=== PATIENT | female | born 1950 | race Caucasian/White ===

== ENCOUNTER 2020-03-28 06:08 | Observation (INO) | payer MEDICARE, OTHER ==
[~2020-03-28] VITALS: Ht 160 cm; Wt 84.6 kg
[~2020-03-28 06:08] MED LIST: AMLODIPINE BESYL5 MG PO; BACLOFEN20 MG PO; CARVEDILOL12.5 MG PO; CLONIDINE1 EAC2 TD; ESTRADIOL1 MG PO; FLUOXETINE HCL20 MG PO; HYDRALAZINE HCL10 MG PO; HYDRALAZINE HCL25 MG PO; LEVOTHYROXINE75 MCG PO; LISINOPRIL10 MG PO; SIMVASTATIN10 MG PO; TRAZODONE HCL50 MG PO
--- NOTE | 2020-03-28 09:00 | NUR ---
PATIENT ARRIVES TO CCU ROOM 130 FROM ER FOR HYPERTENSIVE EMERGENCY. PT ABLE TO STAND TO PIVOT OVER TO BED, PIVOTING ON HER LEFT LEG WHICH IS HER STRONG SIDE. PT SUFFERS FROM MS AND HER RIGHT SIDE IS EFFECTED BY THIS WITH WEAKNESS. PT REPORTS FALLING EARLY THIS AM, AROUND 0300 AT HOME. PT'S BLOOD PRESSURES VERY ELEVATED UPON ADMIT. PT IS ALERT, ORIENTED TO SELF, PLACE, BUT STATES INCORRECT YEAR INITIALLY AND STATES THE PRESIDENT IS "OBAMA." PT ALSO UNSURE OF THE CURRENT MONTH. ASSESSMENT COMPLETE. LUNGS ARE CLEAR TO AUSCULTATION AND ON ROOM AIR. PT'S SON IN ROOM AND ATTENTIVE. CONTINUE TO MONITOR.
--- NOTE | 2020-03-28 10:56 | NUR ---
PATIENT FINISHES HER BREAKFAST AND IS NOW RESTING, WATCHING FOOTBALL WITH HER SON AT BEDSIDE. PT DENIES FURTHER NEEDS. ORIETNED TO CALL LIGHT AND COMMODE OUT AND READY FOR PATIENT TO USE WHEN SHE NEEDS TO VOID.
--- NOTE | 2020-03-28 11:30 | NUR ---
THIS RN TOOK OVER PATIENT CARE AT THIS TIME. INTRODUCED MYSELF AND VISITED WITH PATIENT AND FAMILY. PATIENT IS SITTING UP IN BED WITH HER SON AT THE BEDSIDE. PATIENT IS ALERT, BUT FORGETFUL OF EVENTS AND TIME. PER SON PATIENT IS FORGETFUL BASELINE, BUT SEEMS A LITTLE BIT MORE SO WITH FALLING THIS AM. PATIENT DENIES ANY OTHER NEEDS AT THIS TIME. ASSESSMENT COMEPLTED. WILL CONTINUE TO CLSOELY MONITOR.
--- NOTE | 2020-03-28 13:37 | EKG ---
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
--- NOTE | 2020-03-28 13:42 | NUR ---
LUNCH FINISHED PATIENT REPOSITIONED IN BED FOR COMFORT. PATIENT VISITING WITH HER GRANDDAUGHTER. WILL CONTINUE TO CLOSELY MONITOR.
--- NOTE | 2020-03-28 14:53 | NUR ---
REPORT GIVEN TO JOSHUA RICHARDSON. SEE WILL RESUME CARE AT THIS TIME. INTRODUCED PATIENT TO RN. PATIENT DENIES ANY NEEDS AT THIS TIME. CALL LIGHT IN REACH.
--- NOTE | 2020-03-28 14:58 | NUR ---
REPORT RECIVED. PT IN BED AWAKE. DENEIS PAIN OR NEEDS. IS ALERT. CALL LIGHT IN REACH.
[2020-03-28] MEDS ORDERED: LISINOPRIL20 MG PO (16:13)
[2020-03-28] MEDS ORDERED: CARVEDILOL25 MG PO (16:14)
--- NOTE | 2020-03-28 16:24 | NUR ---
PT WITH BLOOD PRESSURE OF 182/69. PRN LABATOLOL ADMINSITERED.
--- NOTE | 2020-03-28 18:29 | NUR ---
PT SITTING IN BED WATCHING TV. ATE 100% OF DINNER. DENIES PAIN OR NEEDS. BLOOD PRESSURE IMPROVED. CALL LIGHT IN REACH. DENEIS NEEDS.
--- NOTE | 2020-03-28 20:57 | NUR ---
IN TO DO ASSESSMENT. pt RESTING IN BED WITH DAUGHTER AT BEDSIDE. DAUGHTER PROVIDED A LISTED OF MEDICATIONS THE pt TAKES AT HOME, MENTIONED THAT THE PILLS IN THE pt's MED BOX DID NOT MATCH THE PERSCRIPTION BOTTLE, THE DAUGHTER THOUGHT THAT THE PATIENT MAY NOT HAVE BEEN TAKING HER MEDICATIONS CORRECTLY. ASSESSMENT DONE. pt DENIED PAIN AT THIS TIME. MEDICATIONS GIVEN (SEE MAR). DAUGHTER REMAINS AT BEDSIDE. NO FURTHER REQUESTS AT THIS TIME. CALL LIGHT WITHIN REACH.
--- NOTE | 2020-03-28 21:15 | NUR ---
REPORT GIVEN TO DEBRA TENA. pt MOVED TO MED/SURG
--- NOTE | 2020-03-28 21:25 | NUR ---
pt TRANSFERRED FROM CCU TO ROOM 113 VIA HOSPITAL BED. ORIENTATION TO ROOM, CALL LIGHT PROVIDED. DAUGHTER IN ROOM. SANDWICH BOX PROVIDED REQUESTED. IVF INFUSING ORDERED. CALL LIGHT IN REACH. TELE [address] .
--- NOTE | 2020-03-28 22:32 | NUR ---
CALL LIGHT ANSWERED. HEAVY 2PA TO PIVOT TO [facility] FOR VOID. NO VOID IN COMMODE, INCONTINENT OF URINE. BEDDING CHANGED. ATTENDS, NOEMI PAD PLACED ON pt. BACK IN BED. NEURO FUNCTION WNL. CALL LIGHT IN REACH. DAUGHTER AT BEDSIDE. NO ADDITIONAL REQUESTS.
--- NOTE | 2020-03-29 00:52 | NUR ---
pt AWAKENS EASILY TO RN ENTERING ROOM. HR 60 ON TELE 3. BP 178/65, PRN MEDICATION ADMINISTERED FOR BP. NEURO CHECK WNL. WEAKNESS RIGHT SIDE UNCHANGED. ORIENTED TO ALL EXCEPT EXACT DATE, ORIENTED TO MONTH, YEAR. DAUGHTER IN ROOM. CALL LIGHT IN REACH. pt HAS NO ADDITIONAL REQUESTS AT THIS TIME.
--- NOTE | 2020-03-29 04:17 | NUR ---
CHECKED ON PT @ 0345 FOR NEURO CHECK. PT C/O "FEELING FUNNY" IN HER STOMACH BUT BELIEVES IT IS NERVES FROM "BEING IN HERE". BP CHECKED AND BP WAS 204/90, MAP 117, HR 72. PRN 10MG LOBETALOL ADMINISTERED IV. WILL RECHECK BP IN 30MIN. DAUGHTER IN ROOM IN CHAIR AT BEDSIDE. CALL LIGHT PLACED WITHIN REACH
--- NOTE | 2020-03-29 05:49 | NUR ---
RECHECK BP. 157/69, HR 62. ASSESSMENT COMPLETE. I/OS FINISHED. PT REPORTS NO PAIN. NEURO CHECK WNL. CALL LIGHT WITHIN REACH. NO FURTHER NEEDS AT THIS TIME.
--- NOTE | 2020-03-29 07:05 | NUR ---
BEDSIDE HANDOFF REPORT RECEIVED FROM ORGANIC CHEMISTRY TEACHER RN. PT SLEEPING, DAUGHTER SLEEPING AT BEDSIDE.
--- NOTE | 2020-03-29 08:00 | NUR ---
PATIENT RESTING IN BED. WHITE BOARD UPDATED. PATIENT'S HANDS AND FACE WASHED. PATIENT'S BREAKFAST ORDERED. CALL LIGHT WITHIN REACH. NO OTHER NEEDS AT THIS TIME
--- NOTE | 2020-03-29 09:12 | NUR ---
PT RESTING IN BED, EATIN BREAKFAST. PT HYPERTENSIVE, BP 194/83, GIVEN SCHEDULED LISINOPRIL, HYDRALAZINE AND CARVEDILOL, DISCUSSED WITH DR. DRISCOLL IF PRN IV BLOOD PRESSURE MEDICATIONS SHOULD BE GIVEN, HOLD AT THIS TIME TO EVALUATE EFFECTIVENESS OF ORAL MEDS. PT ASSISTED TO BSC, VOIDED. LUNG SOUNDS CLEAR, DENIES SOB. GOOD APPETITE. IV SALINE LOCKED. PT DENIES OTHER NEEDS AT THIS TIME.
--- NOTE | 2020-03-29 09:47 | NUR ---
PATIENT SITTING UP IN BED. VITAL SIGNS AND I&O DONE. CALL LIGHT WITHIN REACH. NO OTHER NEEDS AT THIS TIME
--- NOTE | 2020-03-29 11:26 | NUR ---
IV STARTED IN RFA. PRN BLOOD PRESSURE MEDICATION GIVEN FOR ELEVATED BP. PT ALSO COMPLAINING OF HEADACHE. PRN TYLENOL ADMINSTERED.
--- NOTE | 2020-03-29 12:23 | NUR ---
PO CARVEDILOL GIVEN PER ORDER, DISCUSSED WITH PT THAT HOME DOES IS BEING INCREASED FOR BETTER BLOOD PRESSURE CONTROL. PT GIVEN FRESH ICE FOR DRINKS, PT DENIES OTHER NEEDS AT THIS TIME.
--- NOTE | 2020-03-29 13:12 | NUR ---
NEURO ASSESSMENTS D/C PER AT AM STAFF MEETING.
--- NOTE | 2020-03-29 13:22 | NUR ---
PATIENT RESTING IN BED. VITAL SIGNS AND I&O DONE. PATIENT USES THE BASE COMMODE. TWO PERSON ASSISTING. PATIENT BACKS TO BED. CALL LIGHT WITHIN REACH. NO OTHER NEEDS AT THIS TIME
--- NOTE | 2020-03-29 14:30 | NUR ---
PT RESTING IN BED. AFTERNOON ASSESSMENT COMPLETED, NO ACUTE CHANGES. PT ASSISTED TO ORDER LUNCH SHE HAS NOT EATEN YET. PT DENIES OTHER NEEDS AT THIS TIME.
--- NOTE | 2020-03-29 17:26 | NUR ---
Spoke with Shari. She states she has had MS since she was 14 yo and has learned how to live with it. States she lives alone in a 1 story home with a ramp. She does all her own house hold chores and ADLS. States she mops her floors and uses a small vacume to clean up spills. She has friend who vacumes and occasionally deep cleans. She denies needs to go home. Daughter arrives and states she plans on her and her mother moving in together. Shari states this is her not her plan and she does not plan on living with her daughter. She states she plans on going home to her house on [address].
[2020-03-29] MEDS ORDERED: LO-DOSE ASPIRIN81 MG PO (17:28)
[2020-03-29] MEDS ORDERED: COD LIVER OIL1 EAC1 PO (17:29)
--- NOTE | 2020-03-29 17:29 | NUR ---
Medications reconciled using RX records and interview with patient & her daughter
--- NOTE | 2020-03-29 17:34 | NUR ---
PATIENT SITTING UP IN BED. DAUGHTER AND PHARMACIST IN ROOM. VITAL SIGNS AND I&O DONE. PATIENT ASKS FOR GAS MEDICINE. RN NOTIFIED. CALL LIGHT WITHIN REACH. NO OTHER NEEDS AT THIS TIME
--- NOTE | 2020-03-29 17:44 | NUR ---
PT WITH IMPROVED BLOOD PRESSURE, RECEIVED IV HYDRALAZINE AND PO CARVEDILOL DOSE INCREASED. PT ON ROOM AIR, LUNG SOUNDS CLEAR. PT WITH ACTIVE BOWEL TONES, TOLERATING DIET. 1PA TO BSC, VOIDING QS. NEW IV STARTED TO RIGHT ARM.
--- NOTE | 2020-03-29 19:21 | PATH ---
[facility] [address], [place] [address] Signed ORDERING PHYSICIAN: Femi Craig MD PATIENT NAME: TERENCE BAJWA GENDER: F : 1950 Prior History: No cases found. SPECIMEN(S): No Source Given MOLECULAR PATHOLOGY RESULTS: SARS-CoV-2 Not Detected ADDITIONAL NOTES.: The Lynn Fusion SARS-CoV-2 Assay is a multiplex real-time PCR (RT-PCR) in vitro diagnostic test intended for the qualitative detection of RNA from SARS-CoV-2 from individuals who meet COVID-19 clinical and/or epidemiological criteria. In general, SARS-CoV-2 RNA can be detected during the acute phase of infection. Positive results indicate the presence of SARS-CoV-2 RNA. Clinical correlation with patient history and other diagnostic information is necessary to determine patient infection status. Positive results do not rule out bacterial infection or co-infection with other viruses. Negative results do not preclude SARS-CoV-2 infection and should not be used as the sole basis for patient management decisions. Negative results must be combined with other clinical observations, patient history, and epidemiological information. The Lynn Fusion SARS-CoV-2 Assay is not yet approved or cleared by the [place] FDA. When there are no FDA-approved or cleared tests available, and other criteria are met, FDA can make tests available under an emergency access mechanism called an Emergency Use Authorization (EUA). The EUA for this test is supported by the Safety Scientist of Health and Human Service's (HHS's) declaration that circumstances exist to justify the emergency use of in vitro diagnostics for the detection and/or diagnosis of the virus that causes COVID-19. This EUA will remain in effect for the duration of the COVID-19 declaration justifying emergency of IVDs, unless it is terminated or revoked by FDA, after which the test may no longer be used. The Lynn Fusion SARS-CoV-2 Assay is for use only under EUA PATIENT NAME: TERENCE BAJWA PATHOLOGY DATE OF : 50 REPORT #: [id number] PHYSICIAN: GINETTE FOSTER PCP: ARMEN PEARSON MD REPORT IS CONFIDENTIAL AND NOT TO BE RELEASED WITHOUT AUTHORIZATION [facility] [address], [place] [address] Signed in laboratories certified under the Clinical Laboratory Improvement Amendments of 1988 (CLIA) to perform high complexity tests. [facility] is certified under CLIA to perform high complexity clinical laboratory testing. PERFORMING LABORATORY.: Molecular testing was performed by [facility] [address] [place], [place] [address] [address] (Community Artist: Reji Butler D.O.; CLIA#: [id number]) Diagnostician: System Interface Pathologist Electronically Signed 03/29/2020 Copies: ~ PATIENT NAME: TERENCE BAJWA PATHOLOGY DATE OF : 50 REPORT #: [id number] PHYSICIAN: GINETTE FOSTER PCP: ARMEN PEARSON MD REPORT IS CONFIDENTIAL AND NOT TO BE RELEASED WITHOUT AUTHORIZATION
--- NOTE | 2020-03-29 19:30 | NUR ---
REPORT RECEIVED FROM DEBRA MORA. pt AWAKE IN BED, DAUGHTER AT BEDSIDE. IV SL. TRAY TABLE CLEARED. CALL LIGHT IN REACH. NO REQUESTS AT THIS TIME.
--- NOTE | 2020-03-29 20:48 | NUR ---
ice water refilled.
--- NOTE | 2020-03-29 22:25 | NUR ---
pt RESTING IN BED AWAKE. VSS. SCHEDULED MEDICATIONS ADMINISTERED. TELE [address], HR REGULAR RHYTHM. CALL LIGHT AND PERSONAL SUPPLIES IN REACH. REPOSITIONED IN BED WITH TWO NURSING STAFF ASSIST.
--- NOTE | 2020-03-30 00:45 | NUR ---
pt RESTING IN BED WITH EYES CLOSED. BREATHING UNLABORED. CALL LIGHT IN LAP.
--- NOTE | 2020-03-30 03:30 | NUR ---
pt APPEARS TO BE SLEEPING, RESTING IN BED WITH EYES CLOSED, BREATHING UNLABORED.
--- NOTE | 2020-03-30 05:55 | NUR ---
pt AWAKENS TO RN ENTERING ROOM. VSS. 2PA TO BSC FOR VOID AND BACK TO BED. ASSISTED TO REPOSITION. ASSESSMENT COMPLETE. HR REGULAR RHYTHM ON TELE 3. CALL LIGHT IN REACH. COFFEE AND ICE WATER PROVIDED.
--- NOTE | 2020-03-30 07:28 | NUR ---
THIS RN RECEIVED REPORT FROM DARINEL RICHARDSON. PT APPEARS TO BE RESTING AT THIS TIME WITH RESPIRATIONS NOTED AND CALL LIGHT WITHIN REACH. [facility] SAP DEVELOPER CINDY TO ASSIST THIS RN TODAY ON THIS PT.
--- NOTE | 2020-03-30 08:20 | NUR ---
THIS RN IN PTS ROOM WITH [facility] SITE HEAD CINDY. WHEN BOTH ENTERED PT STATED THAT SHE THOUGHT SHE WAS HEARING VOICES, THIS RN ASKED IF THE NOISE WAS COMING FROM THE CALL LIGHT REMOTE, PT STATED THAT WAS WHAT THE NOISE WAS COMING FROM. PT STATES NO PAIN, SOME DISCOMFORT FROM THE SIGHT WHERE THEY RUI LABS THIS AM. NO OTHER CONCERNS AT THIS TIME.
--- NOTE | 2020-03-30 09:15 | NUR ---
PATIENT RESTING IN BED. STUDENT RN IN ROOM. PATIENT GOES TO THE BATHROOM TO TAKE A SHOWER. TWO PERSON ASSISTING. LINENS CHANGED. PATIENT BACKS TO BED. WARM BLANKET PROVIDED. CALL LIGHT WITHIN REACH. NO OTHER NEEDS AT THIS TIME
--- NOTE | 2020-03-30 10:20 | NUR ---
Notified by Staff, Daughter in Law Dee had called requesting placement for Shari. She feels if the would encourage Shari she would be willing to go to placement. Spoke with pt and discussed if she would be interested in placement. She becomes very upset and states, "I know it was my daughter in law who called and she has nothing to say about it". Pt feels she and daughter in law do not get along. Pt feels she does fine on her own. She is able to care for her home, uses a med box, calls or family appropriately when needed. Discussed I just needed to ask. Also reminded her family are concerned about her. She asks I call her son and let him know she does not need to leave her home. Called son Meliton and updated to conversation. He is aware as Shari has called him and let him know she is not happy with them. He states he can see his mom deteriorating and he is concerned. He states her memory is worsening and she calls him frequently, he is unable to leave his job and she expects him to do so. Discussed he needs to go throug her PCP if he has concerns. He should call Dr. Cleveland and let him know his concerns prior to his next visit. Son is going to '[place] office today and will discuss with him.
[2020-03-30] MEDS ORDERED: MULTI VITAMIN1 EACH PO (10:58)
--- NOTE | 2020-03-30 11:46 | NUR ---
THIS RN DISCUSSED WITH ABOUT PTS DISCHARGE BLOOD PRESSURE. THIS RN STATED THAT PT WAS HAVING SOME PERSONAL STRESS THAT COULD BE CONTRIBUTING TO HER INCREASED BP. PT STATED THAT SHE THOUGHT HER INCREASED BP WAS DUE TO INCREASED STRESS FROM A DISAGREEMENT THAT SHE HAD WITH HER SON ABOUT HER CONTINUED CARE. MD JIMENEZAY SENDING PT HOME WITH THIS BP. PT STATES THAT SHE HAS NO SYMPTOMS OF HAVING AN INCREASED BP.
--- NOTE | 2020-03-30 13:35 | NUR ---
CONNECTED WITH PT SHE WAS LEAVING FOLLOWING DC. GAVE ENCOURAGEMENT AND BLESSING
== END 2020-03-30 12:10 | disposition home or self-care (01) ==
LOC: ED 06:08 → MS 06:10 → CCU 06:10 → MS 21:59
PROVIDERS: ADMIT Internal Medicine; ATTEND Internal Medicine
DX: I16.9 Hypertensive crisis, unspecified (principal); I10 Essential (primary) hypertension; G35 Multiple sclerosis; Z20.828 Contact with and (suspected) exposure to other viral communicable diseases; Z88.0 Allergy status to penicillin; Z79.899 Other long term (current) drug therapy; Z79.82 Long term (current) use of aspirin; W18.30XA Fall on same level, unspecified, initial encounter; W06.XXXA Fall from bed, initial encounter
CPT/HCPCS: 36415; 51701; 70450; 71045; 80048; 80053; 81001; 83735; 84484; 85025; 93005; 93010; 96376; 97162; 99285-25; C9803; G0378; G0480; J0360; J7030; U0003

== ENCOUNTER 2020-10-21 13:06 | Emergency (ER) | payer MEDICARE ==
[~2020-10-21] VITALS: Ht 160 cm; Wt 84.6 kg
[~2020-10-21 13:06] MED LIST changes: +CARVEDILOL25 MG PO; +COD LIVER OIL1 EAC1 PO; +LISINOPRIL20 MG PO; +LO-DOSE ASPIRIN81 MG PO; +MULTI VITAMIN1 EACH PO
[2020-10-22] MEDS ORDERED: TRIAMTERENE-HC1 EAC1 PO (10:36)
--- NOTE | 2020-10-22 17:13 | EKG ---
[facility] [place] [facility] [address] [facility] [place] [address] Signed Normal sinus rhythm Possible Left atrial enlargement ST \T\ T wave abnormality, consider lateral ischemia Abnormal ECG When compared with ECG of 28-MAR-2020 06:34, Vent. rate has increased BY 29 BPM Criteria for Inferior infarct are no longer present T wave inversion no longer evident in Anterior leads Confirmed by DALIA MARSH MD ([id number]) on 10/22/2020 5:13:39 PM Electronically Signed By: DALIA MARSH MD 10/22/20 1713 PATIENT NAME: TERENCE BAJWA Electrocardiogram DATE OF : 50 PHYSICIAN: DALIA MARSH MD REPORT #: [id number] REPORT IS CONFIDENTIAL AND NOT TO BE RELEASED WITHOUT AUTHORIZATION
== END 2020-10-21 17:15 | disposition home or self-care (01) ==
LOC: ED 13:06
DX: R53.1 Weakness (principal); I10 Essential (primary) hypertension; Z88.0 Allergy status to penicillin; Z79.899 Other long term (current) drug therapy; Z79.82 Long term (current) use of aspirin
CPT/HCPCS: 70450; 71045; 80053; 81001; 82550; 83605; 84484; 85025; 85651; 87502; 93005; 93010; 99285-25; C9803; J7030; U0003

== ENCOUNTER 2020-10-21 19:25 | Inpatient (IN) | payer MEDICARE ==
[~2020-10-21] VITALS: Ht 160 cm; Wt 87.5 kg
--- OUTSIDE RECORDS SUMMARY | 2020-10-21 19:30 | XMS ---
PreManage Notification: TERENCE BAJWA Security [employer] Events No recent Security Events currently on file CRITERIA MET - [facility] - 2 Visits in 30 Days CARE PROVIDERS There are no care providers on record at this time. [facility] has no Care Guidelines for this patient. [facility] VISIT COUNT (12 MO.) 3 [facility] Cel[facility] H. TOTAL 3 NOTE: Visits indicate total known visits. ED/C VISIT TRACKING (12 MO.) 10/21/2020 19:[address] [facility] [place] TYPE: Emergency COMPLAINT: - WEAKNESS 10/21/2020 13:07 [facility] [place] TYPE: Emergency COMPLAINT: - FALL, HIGH B/P, MEMORY LOSS, SLURRED SPEECH 03/28/2020 06:09 [facility] [place] TYPE: Emergency COMPLAINT: - CONFUSION INPATIENT VISIT TRACKING (12 MO.) 03/28/2020 06:10 [facility] [place] TYPE: Observation COMPLAINT: - HYPERTENSIVE CRISIS DIAGNOSES: - Fall from bed, initial encounter - group home (current) use of aspirin - Other m[facility]p (current) drug therapy - Essential (primary) hypertension - Allergy status to penicillin - Hypertensive crisis, unspecified - Fall on same level, unspecified, initial encounter - Contact with and (suspected) exposure to other viral communicable diseases - Multiple sclerosis [email or web address]
--- NOTE | 2020-10-21 21:44 | NUR ---
PT ARRIVED FROM ED VIA STRETCHER AT 2115. PRIMARY RN YONAS IN ROOM TO ASSIST PT OVER TO BED. VS TAKEN AND ENTERED. PT ORIENTED TO CALL LIGHT AND HAS SON IN ROOM. COMPLETED ADMISSION HX WITH PT AND SON. DR MARSH CALLED OVER ORDER FOR 4 TABS OF 81MG ASPIRIN ONCE AND ORDER ENTERED. LR BOLUS IS INFUSING AT THIS TIME AND PT DENIES NEEDS. CALL LIGHT IS CLOSE.
--- NOTE | 2020-10-21 22:28 | NUR ---
PATIENT ASSESMENT COMPLETED. PATIENTS ADMISSION COMPLETED BY RELAY ADJUSTER. PATIENTS MEDICATIONS GIVEN PER ORDER. PATIENT HAS IV INFUSING PER ORDER AND BOLUS INFUSING PER ORDER. PATIENT DENIES ANY PAIN. PATIENT IS ABLE TO ANSWER ALL ORIENTATION QUESTIONS BUT HOWEVER IS SLOW TO ANSWER THE QUESTIONS. PATIENT IS DROWSY AT TIMES. PATIENT PROVIDED WITH A SANDWICH BOX AND ICE WATER TO DRINK. PATIENTS DAUGHTER IS PRESENT IN THE ROOM. ALL QUESTIONS ANSWERED. PATIENT DENIES ANY FURTHER NEEDS AT THIS TIME. CALL LIGHT IN REACH.
--- NOTE | 2020-10-21 23:28 | NUR ---
PATIENT ASSISTED TO THE BSC A 2PA PIVOT. PATIENT WAS ABLE TO VOID. PATIENT IS BACK IN BED RESTING. PATIENT DENIES ANY FURTHER NEEDS. PATIENTS DAUGHTER REMAINS AT THE BEDSIDE. CALL LEILA VERGARA.
--- NOTE | 2020-10-22 01:00 | NUR ---
PATIENT FINISHED 100% OF HER SNACK. PATIENT REPOSITONED IN BED AND PROVIDED WITH FRESH ICE WATER. NO FURTHER NEEDS NOTED. CALL LIGHT IN REACH.
--- NOTE | 2020-10-22 01:35 | NUR ---
PATIENTS DAUGHTER NOTIFIED STAFF THAT HER MOTHER WAS UNCOMFORTABLE. PATIENT ASSISTED TO REPOSITION. PATIENT STATED "I DONT FEEL RIGHT". PATIENT DENIES ANY PAIN OR NAUSEA. PATIENTS VITALS TAKEN AND ARE WNL. PATIENTS INTAKE AND OUTPUT RECORDED. PLACED EGG CRATE ON PATIENTS BED TO MAKE BED SOFTER. PATIENT DENIES ANY FURTHER NEEDS. CALL LIGHT IN REACH.
--- NOTE | 2020-10-22 01:53 | NUR ---
PATIENT REPOSITIONED IN BED. PATIENTS VITALS TAKEN AND RECORDED. INTAKE AND OUPUT RECORDED. PATIENTS IVINFUSING PER ORDER. NO FURTHER NEEDS NOTED. DAUGHTER REMAINS IN ROOM. CALL LIGHT IN REACH.
--- NOTE | 2020-10-22 03:17 | NUR ---
PATIENT CONTINUES TO BE UNCOMFORTABLE. PATIENT PROVIDED WITH FAN. PATIENT ASSISTED A 2PA PIVOT TO THE RECLINER. PATIENT REPOSTIONED IN THE FAN. PATIENT PROVIDED WITH HOT TEA. PATIENT REPORTS GENERALIZED DISCOMFORT. PATIENT GIVEN PRN TYLENOL PER ORDER. PATIENT IS RESTING IN RECLINER. PATIENT APPEARS OVERLY TIRED SHE CONTINUES TO FALL ASLEEP THEN WAKE UP AFTER JUST A FEW MINUTES AND STATES "I JUST CAN'T" THIS IS REPEATED ALL THROUGHOUT PATIENT CARE. PATIENT PROVIDED WITH TEA. PATIENT PROVIDED WITH COOL WASH RAG. PATIENT STATED THAT SHE WAS SOB AT ONE POINT OXYGEN SATURATION IS WNL. PATIENT OFFERED OXYGEN. ATTEMPTED TO PALCE PATIENT ON 1L. PATIENT WAS NOT ABLE TO WEAR. PATIENTS OXYGEN SATS REMAIN WNL. PATIENT REPOSITIONED AGAIN IN RECLINER AND FEET PLACED UP. PATIENT APPEARS TO BE MORE COMFORTABLE AT THIS TIME. DAUGHTER REMAINS IN THE ROOM. CALL LIGHT IN REACH.
--- NOTE | 2020-10-22 03:56 | NUR ---
PATIENT IS RESTING IN RECLINER WITH EYES CLSOED, RR 17. CALL LIGHT IN REACH. DAUGHTER ASLEEP IN ROOM.
--- NOTE | 2020-10-22 04:23 | NUR ---
PATIENT CONTINUES TO REST IN RECLINER WITH EYES CLOSED, RR 17. CALL LIGHT IN REACH.
--- NOTE | 2020-10-22 06:29 | NUR ---
LAB IN ROOM. PATIENTS VITALS TAKEN AND RECORDED. INTAKE AND OUTPUT RECORDED. PATIENT IS RESTING IN RECLINER. MORNING MEDICATION GIVEN PER ORDER. PATIENT DENIES ANY NEEDS. CALL LIGHT IN REACH. DAUGHTER REMAINS IN THE ROOM.
--- NOTE | 2020-10-22 07:45 | NUR ---
REPORT RECEIVED FROM NIGHT RN AND PT. CARE RESUMED. PT. IS UP TO THE COMMODE WITH 2PA AND ABLE TO PIVOT. ORIENTED TO PERSON AND PLACE ONLY. SHE IS SLOW TO RESPOND AND APPEARS TO FALL IN AND OUT OF SLEEP WHILE SITTING UP TALKING. AFTER AMBULATING TO COMMODE PT. REPORTS DIZZINESS. VITALS TAKEN AND STABLE. DIZZINESS RESOLVED AFTER A FEW MINUTES. LUNGS CLEAR. BOWEL TONES ACTIVE. PT. DENIES PAIN. NEURO ASSESSMENT SHOWS SLIGHT RIGHT SIDED WEAKNESS UPPER AND LOWER EXTREMITY THAT WAS REPORTED NORMAL. DISCUSSED POC AND SAFETY. PT. LEFT RESTING IN BED WITH CALL LIGHT IN REACH.
--- NOTE | 2020-10-22 09:15 | NUR ---
SPOKE WITH PT AND SHE IS DROWSY. STATES SHE CONT. TO LIVE AT HOME ALONE. DAUGHTER CHECKS ON HER. 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 PT STATES SHE IS VERY WEAK, AND FEELS SHE MAY NEED TO BE PLACED ON DISCHARGE IF SHE NEEDS FURTHER HELP.
--- NOTE | 2020-10-22 09:45 | NUR ---
PT. REPORTS NAUSEA. SHE WAS ASSISTED WITH SITTING UPRIGHT. ADMIN. ZOFRAN. WILL CONTINUE TO MONITOR. PT. HAS SCAB PRESENT ON ELBOWS BUT COULD NOT RECALL WHERE SHE GOT THEM. SHE COMPLAINS IT IS BOTHERING HER. LEFT SIDE DRESSED WITH FOAM DRESSINGS.
[2020-10-22] MEDS ORDERED: TRIAMTERENE-HC1 EAC1 PO (10:36)
--- NOTE | 2020-10-22 10:44 | NUR ---
MED REC COMPLETE
--- NOTE | 2020-10-22 11:12 | NUR ---
PT. HEARD YELLING "HELP ME!" REPEATEDLY. THIS NURSE CHECKED ON PT. AND SHE COULD NOT STATE WHAT SHE NEEDED. PT. STATED SHE WAS SCARED AND DID NOT FEEL LIKE HERSELF. PT. LESS ORIENTED AND COULD NOT STATE HER , YEAR, OR EVENT. NEURO ASSESSMENT SHOWS RT. SIDED WEAKNESS THAT IS CHRONIC. PT. REPEATEDLY FALLS ASLEEP MID-SENTENCE. SHE IS INCREASINGLY RESTLESS. NOTIFIED. NO NEW ORDERS. WILL CONTINUE TO MONITOR.
--- NOTE | 2020-10-22 13:52 | NUR ---
PT. BACK FROM MRI. RESTARTED IVF. PT. DENIES PAIN. ORIENTED TO TO SELF AND PLACE. SHE IS MORE ALERT AND NOT FALLING ASLEEP WHILE TALKING, SHE DID EARLIER. LUNGS CLEAR THROUGHOUT. NEURO ASSESSMENT SHOWS ONLY RT. SIDED WEAKNESS IN ARM AND LEG. PT. DENIES FURTHER NEEDS AND LEFT RESTING WITH SON AT BEDSIDE.
--- NOTE | 2020-10-22 16:23 | NUR ---
PATIENT UP TO THE BEDSIDE COMMODE WITH FWW AND 2PA. PT. DID WELL WITH THE WALKER AND STATED SHE HAS USED ONE IN THE PAST. IV SITE WNL. PT. IS ORIENTED TO SELF, PLACE, EVENT. COMMUNICATING WELL. LUNGS CLEAR. PT. ASSISTED WITH REPOSITIONING. LEFT RESTING IN BED WITH CALL LIGHT IN REACH AND CURTAIN OPEN.
--- NOTE | 2020-10-22 19:00 | NUR ---
SHIFT REPORT RECEIVED FROM DAYSHIFT DEBRA ALLEN AT BEDSIDE. IV FLUIDS ON STANDBY, RESUMED AT THIS TIME PER MD ORDERS, SITE WNL. INFORMED BY JOCELIN NUÑEZ, pt CALLING OUT FOR HELP AND THAT NOBODY HAS BEEN IN HER ROOM. THIS RN AND DEBRA ALLEN IN ROOM, pt ON PHONE WITH DAUGHTER. THERAPEUTIC COMMUNICATION PROVIDED, pt REASSURED. CALL LIGHT IN REACH, BED ALARM ON FOR SAFETY. WILL MONITOR. BOARD UPDATED.
--- NOTE | 2020-10-22 20:02 | NUR ---
IN ROOM TO REASSURE pt AFTER NOTIFIED BY DEBRA LEWIS THAT pt CLAIMS SHE NEEDS HELP AND NOBODY HAS SEEN HER. IN ROOM TO ASSESS, pt IN BED AND STATES, "IM SICK". WHEN ASKED IF pt HAD PAIN pt DENIED AND DID NOT GVIVE FURTHER ANSWER REGARDING WHY SHE FELT SICK. pt A/O TO SELF AND PLACE. THERAPEUTIC COMMUNICATION PROVIDED. NO FURTHER NEEDS, CALL LIGHT REMAINS IN REACH. BED ALRM ON.
--- NOTE | 2020-10-22 20:57 | NUR ---
ASSESSMENT COMPLETE, SCHEDULED MED GIVEN. FAMILY IN ROOM. MEDS GIVEN W/O CONCERN, SEE EMAR. pt UP 2PA TO BSC AND BACK TO BED. WEAK ON FEET, BUT TOLERATED WELL. REPOSITIONED IN BED, HOB ELEVATED FOR COMFORT. BED ALRM ON FOR SAFETY. IV FLUIDS INFUSING PER MD ORDERS, IV SITE WNL. NO FURTHER NEEDS, CALL LIGHT IN REACH.
--- NOTE | 2020-10-22 21:05 | NUR ---
IN TO GET PT VITALS FOR RN, PT REQUESTING TO GET UP OUT OF BED AND ALSO GET UP TO VOID, WILL GET SOME ASSISTANCE
--- NOTE | 2020-10-22 21:10 | NUR ---
IN TO RN WITH 2PA PIVOT FWW TO BED FROM BS, FRESH ICE WATER AND JELLO PROVIDED AT THIS TIME, FAMILY IN RM TO VISIT PT AT THIS TIME
--- NOTE | 2020-10-22 21:50 | NUR ---
IN TO PUT PILLOW UNDER LEFT SIDE/HIP PER PT REQUEST, NO FURTHER NEEDS AT THIS TIME
--- NOTE | 2020-10-22 22:50 | NUR ---
SECURITY PROVIDED PTs FAMILY MEMBER WITH PILLOW AND BLANKET
--- NOTE | 2020-10-22 23:26 | NUR ---
pt RESTING IN BED WITH EYES CLOSED, RR EVEN AND UNLABORED. NO DISTRESS NOTED, FAMILY REMAINS IN ROOM. BED ALARM ON FOR SAFETY, CALL LIGHT IN REACH.
--- NOTE | 2020-10-23 00:20 | NUR ---
PT CALLED OUT, IN TO CHECK ON PT, NEEDED TO USE THE BSC, 2PA PIVOT WITH FWW, THEN BACK TO BED, ASSISTED PT WITH POSITIONING AND PILLOWS, PT WORRIES ABOUT NOT BEING ALBE TO MOVE OR 'CALL ANYONE' REASSURED PT AND PROVIDED CALL LIGHT NO FURTHER NEEDS AT THIS TIME
--- NOTE | 2020-10-23 00:25 | NUR ---
pt YELLING OUT "HELP ME...HELP ME". pt REPORTS NEEDING TO VOID, pt UP 2PA WITH FWW WITH HELP FROM JOCELIN NUÑEZ TO BSC AND BACK TO BED. pt EDUCATED ON USE OF CALL LIGHT, pt STATES, "I WOKE UP AND DIDN'T KNOW WHERE I WAS". pt EASILY REORIENTED TO PLACE AND TIME. pt VERY PARTICULAR REGARDING POSITIONING IN BED AND REPORTS FEELING UNCOMFORTABLE, SON ALSO IN ROOM. pt EVENTUALLY SETTLED INTO BED, WITH PILLOWS UNDER RIGHT SIDE. BED ALARM ON. CALL LIGHT IN REACH.
--- NOTE | 2020-10-23 00:56 | NUR ---
CALL LIGHT ON, PT REQUESTING TO REPOSITION, THIS INSIDE SALES COORDINATOR DETERMINED PT WANTING TO SIT UP, GOT PT TO SIT EDGE OF BED, PT THEN WANTING TO SIT UP IN THE CHAIR, CALLED FOR SECOND PERSON, RN IT TO HELP, 2PA FWW OVER TO THE CHAIR, CHAIR ALARM IN PLACE, PILLOWS ADDED FOR COMFORT, ASST PT TO ADJUST IN THE CHAIRM CALL LIGTH IN HANDS, FAMILY MEMBER IN RM AT THIS TIME, NO FURTHER NEEDS
--- NOTE | 2020-10-23 01:06 | NUR ---
CHAIR ALARM SET OFF, SON HELPING PT MOVE LEG, THIS BRIDGE IRONWORKER HELPER ASSISTING PT REPOSITION IN CHAIR, CHAIR ALARM RESET
--- NOTE | 2020-10-23 01:30 | NUR ---
CALL LIGHT ANSWERED, pt CONTINUES TO REPORT FEELING COMFORTABLE, BUT IS VAGUE WHEN ASKED HOW TO IMPROVE COMFORT. pt STATES, "I JUST NEED TO GET UP". HOB ELEVATED IN CHAIR, BLE DANGLING. TV ON FOR DISTRACTION. SON REMAINS IN ROOM. CALL LIGHT IN REACH AND CHAIR ALARM ON FOR SAFETY. WILL MONITOR.
--- NOTE | 2020-10-23 02:30 | NUR ---
PT CALLING, FEELING HUNGRY, PROVIDED SOME CRACKERS, PT NEEDING HELP WITH TV CHANNELS/REMOTE, NO FURTHER NEEDS AT THIS TIME
--- NOTE | 2020-10-23 03:05 | NUR ---
CALL LIGHT ON, PT NEEDING HELP WITH TV REMOTE, PT FEELING HUNGRY STILL, WILL CALL FOR A SANDWHICH BOX, NO FURTHER NEEDS AT THIS TIME PT STILL UP TO THE CHAIR
--- NOTE | 2020-10-23 03:20 | NUR ---
IN TO PROVIDE PT SANDALPHONSOICH BOX, PT THEN WANTED TO GET UP TO THE COMMODE, SECOND RN IN TO ASST, 2PA PIVOT TO BSC FROM CHAIR, THEN TO BED, PT POSITIONED IN BED, THEN NEEDED ME TO PUT DIANE ON HER SANDWICH AND TO OPEN APPLESUACE, PT STILL REQEUSTING HELP WITH REMOTE
--- NOTE | 2020-10-23 03:56 | NUR ---
pt CALLED AND REPORTS GENERALIZED DISCOMFORT. PRN TYLENOL GIVEN, SEE EMAR. START OF INFILTRATION NOTED TO IV SITE, GAGGERMANDEBRA BARNES ALSO ASSESSED. SITE DISCONTINUED, CATHETER TIP INTACT. CREW TRAINER IN ROOM TO ATTEMPT TO START NEW IV. ASSESSMENT ALSO COMPLETE.
--- NOTE | 2020-10-23 04:07 | NUR ---
IV START UNSUCCESSFUL BY BOAT LOADER, ED DEBRA MORA TO ATTEMPT NEW IV.
--- NOTE | 2020-10-23 04:26 | NUR ---
X2 ATTEMPTS UNSUCCESSFUL BY ED DEBRA MORA. WILL ALLOW pt TO REST AND NOTIFY MD AT SHIFT CHANGE. SUPERVISOR COSTUMINGDEBRA ABRNES AWARE. FLUIDS PLACED ON STANDBY AT THIS TIME.
--- NOTE | 2020-10-23 06:30 | NUR ---
IN TO GET PT UP TO THE BSC, 2PA FWW PIVOT, THEN BACK TO BED, PT CONTINUES TO BE CONCERNED ABOUT CHANNALS AND TV REMOTE, NO FURTHER NEEDS
--- NOTE | 2020-10-23 06:43 | NUR ---
SCHEDULED THYROID MED GIVEN, SEE EMAR. pt UP 2PA WITH FWW TO VOID AND BACK IN BED. NO FURTHER NEEDS, CALL LIGHT IN REACH.
--- NOTE | 2020-10-23 06:56 | NUR ---
pt CALLED FREQUENTLY ALL SHIFT, REPORTED GENERALIZED DISCOMFORT. PAIN CONTROLLED WITH PRN TYLENOL. 2G SODIUM DIET, TOLERATING WELL. ZOFRAN GIVEN X1. 2PA WITH FWW, SLOW TO MOVE. PREVIOUS IV INFILTRATED, UNABLE TO START NEW ONE AT THIS TIME. BED ALARM ON FOR SAFETY. VOIDING QS, BM X1.
--- NOTE | 2020-10-23 07:23 | NUR ---
PHONE MESSAGE LEFT FOR DR MARSH REGARDING LOST IV AND UNSUCCESSFUL ATTEMPTS TO PLACE NEW IV. JOEY TO RESUME CARE FOR pt AND WILL NOTIFY DR MARSH.
--- NOTE | 2020-10-23 08:15 | NUR ---
Tylenol 500mg po admin for reports of generalized pain.
--- NOTE | 2020-10-23 09:05 | NUR ---
Patient sitting awake in bed, alert and oriented x3. No notable distress. Breakfast ordered. Patient has no needs. Call light within reach.
--- NOTE | 2020-10-23 12:26 | NUR ---
Patient resting in bed, eyes closed, respirations even and non labored. Patient has no distress noted. Personal supplies and call light within reach. Patient was up in chair for several hours this morning.
--- NOTE | 2020-10-23 15:23 | NUR ---
Patient resting in bed, eyes closed, respirations even and non labored. Patient has no notable distress. Call light within reach.
--- NOTE | 2020-10-23 17:13 | NUR ---
RECEIVED REPORT FROM JOEY AT [id number]. PT IN ROOM NO NEW CONCERNS NOTED AT THIS TIME.
--- NOTE | 2020-10-23 17:48 | NUR ---
PATIENT IS SITTING UP IN HER CHAIR. SON IN ROOM. FRESH ICE WATER GIVEN. VITALS AND I&OS ARE DONE AND DOCUMENTED. CALL LIGHT IS IN REACH. NO FURTHER NEEDS AT THIS TIME.
--- NOTE | 2020-10-23 19:55 | NUR ---
PATIENT RESTING QUIETLY IN BED WATCHING TV. PATIENT HAS NO CURRENT CARE NEEDS. CALL LIGHT IS IN REACH.
--- NOTE | 2020-10-23 21:10 | NUR ---
IN WITH RN TO GET VITALS, PT 2PA FWW TO BSC WITH VOID AND BM, SANDWHICH BOX PROVIDED, PT BOOSTED AND PILLOW UNDER PTs KNEE FOR COMFORT, HAND HYGINE PERFORMED AND APPLIED CONDAMENTS TO PTs KVNGWHICH, NO FURHTER NEEDS AT THIS TIME
--- NOTE | 2020-10-23 21:10 | NUR ---
PATIENT UP TO THE BSC 2PA AND FWW WITH THIS RN AND JOCELIN NUÑEZ. PATIENT VOIDED AND HAD A LARGE FORMED BM. PATIENT BACK TO BED AND REPOSITONED TO COMFORT. ICE WATER REFILLED AND PM MEDS HAVE BEEN GIVEN. PATIENT HAS NO FURTHER NEEDS AT THIS TIME.
--- NOTE | 2020-10-23 23:00 | NUR ---
PATIENT RESTING QUIETLY IN LOW-FOWLERS POSITION, EYES CLOSED, RESPIRATIONS REGULAR AND EVEN, CALL LIGHT IS IN REACH.
--- NOTE | 2020-10-24 01:05 | NUR ---
PATIENT RESTING QUIETLY ON HER LEFT SIDE, RESPIRATIONS REGULAR AND EVEN, EYES CLOSED, CALL LIGHT IN REACH.
--- NOTE | 2020-10-24 03:00 | NUR ---
PATIENT RESTING QUIETLY ON HER LEFT SIDE, EYES CLOSED, RESPIRATIONS REGULAR AND EVEN. CALL LIGHT IN REACH.
--- NOTE | 2020-10-24 04:20 | NUR ---
CALL LIGHT ON, PT 2PA FWW PIVOT TO BSC, VITALS TAKEN, PUDDING PROVIDED TO TIDE PT OVER UNTIL BREAKFAST, NO FURTHER NEEDS AT THIS TIME
--- NOTE | 2020-10-24 04:22 | NUR ---
PATIENT 2PA WITH FWW TO THE BEDSIDE COMMODE AND BACK TO BED. I+O AND VS DONE AT THIS TIME AND AM TYROID PILL GIVEN PATIENT WANTS TO GO BACK TO SLEEP LONG SHE CAN. PATIENT HAD LARGE INCONTINENT VOID AND 200ML VOID IN THE BEDSIDE COMMODE. PATIENT'S CHUX PAD CHANGED AND NEW ATTENDS IN PLACE AFTER PATIENT WASHED UP. PATIENT ALSO WAS GIVEN SOME PUDDING FOR A SNACK. CALL LIGHT IN REACH AND PATIENT'S DAUGHTER IS ASLEEP ON THE COUCH.
--- NOTE | 2020-10-24 06:00 | NUR ---
PATIENT HAS HAD A FAIRLY GOOD NIGHT AND HAS SLEPT A GOOD PART OF IT. PATIENT HAS HAD NO C/O PAIN. PATIENT VOIDING QS WITH 2 VOIDS TO THE BEDSIDE COMMODE 2PA WITH FWW AND 2 INCONTINENT EPISODES. VS HAVE BEEN STABLE. PATIENT HAD A LARGE BM LAST NIGHT WELL. PATIENT HAS REMAINED ORIENTED THROUGHOUT THE SHIFT. PATIENT'S CALL LIGHT IS IN REACH AND HER DAUGHTER IS ASLEEP ON THE COUCH.
--- NOTE | 2020-10-24 07:44 | NUR ---
Patient resting in bed, alert and oriented x4. Patient assisted to bedside commode and back to bed; 2PA pivot transfer to commode-tolerated well with assist. Daughter at bedside. Patient requesting to go back to bed for a bit. Call light within reach. No needs at this time.
--- NOTE | 2020-10-24 08:10 | NUR ---
Tylenol 500mg po admin for reports of 5/10 generalized pain.
--- NOTE | 2020-10-24 10:56 | NUR ---
PATIENT RESTING IN BED, EYES CLOSED. WOKE TO VOICE. DAUGHTER IN ROOM. VITALS AND I&OS CHARTED. PATIENT BACK TO SLEEP. CALL LIGHT IN REACH
--- NOTE | 2020-10-24 13:27 | NUR ---
PATIENT UP TO BSC THEN TO SHOWER CHAIR, 2PA PIVOT. PATIENT ASSISTED IN SHOWER. NOEMI CARE, SKIN CARE, SHAMPOO DONE. NEW GOWN AND ATTENDS IN PLACE. PATIENT NOW BACK TO BED, 2PA PIVOT FROM SHOWER CHAIR, SON IN ROOM. CALL LIGHT IN REACH. NO FURTHER NEEDS AT THIS TIME.
--- NOTE | 2020-10-24 14:00 | NUR ---
PATIENT UP IN BED, EATING LUNCH, SON IN ROOM. VITALS AND I&OS CHARTED, NO OTHER NEEDS AT THIS TIME
--- NOTE | 2020-10-24 15:35 | NUR ---
Patient resting in bed, a&ox4. Patient denies pain at this time. No needs. Son resting in chair at bedside. No needs.
--- NOTE | 2020-10-24 16:32 | NUR ---
ASSUMING CARE OF PATIENT AT THIS TIME FROM JOEY RN: pt report included pt bedbound at baseline but able to stand and pivot transfer to chair or commode. pt hasn't had pain the last few hours. pt has one hematoma on her posterior head. pt had a GLF at home and came in for Fall with altered sensorium (dysphagia/confusion). pt currently alert and oriented and uses call light appropriately. pt in bed currently, breathing even and unlabored, table and call light within reach.
--- NOTE | 2020-10-24 19:00 | NUR ---
SHIFT REPORT RECEIVED FROM DAYSHIFT DEBRA VILLAVICENCIO AT BEDSIDE. pt AWAKE AND RESTING IN BED, SON IN ROOM AND PREPARING TO GO HOME FOR THE EVENING. pt APPEARS COMFORTABLE, DENIES NEEDS OR CONCERNS. BOARD UPDATED, CALL LIGHT IN REACH.
--- NOTE | 2020-10-24 20:54 | NUR ---
pt PROVIDED WITH SANDWICH BOX REQUESTED. NO ADDDITIONAL REQUESTS AT THIS TIME. CALL LIGHT IN REACH.
--- NOTE | 2020-10-24 20:55 | NUR ---
ASSESSMENT COMPLETE, SCHEDULED MEDS GIVEN, SEE EMAR. VSS, I&O'S DONE. pt AWAKE AND IN BED, APPEARS COMFORTABLE. NO DISTRESS NOTED. HEEL PROTECTORS IN PLACE WITH PILLOWS FOR COMFORT. pt REQUESTING SANDWICH BOX, DENSITOMETRIST CALLED. NO FURTHER NEEDS. CALL LIGHT IN REACH.
--- NOTE | 2020-10-24 21:09 | NUR ---
pt ASSISTED WITH REPOSITIONING. HEEL PROTECTORS OFF AT THIS TIME PER pt REQUEST, pt READY FOR BED. TV AND LIGHTS OFF. CALL LIGHT IN REACH.
--- NOTE | 2020-10-24 22:42 | NUR ---
CALL LIGHT ANSWERED, pt UP 2PA WITH FWW TO VOID, STEADY ON FEET AND BACK TO BED. NO FURTHER NEEDS VERBALIZED, CALL LIGHT IN REACH.
--- NOTE | 2020-10-24 23:45 | NUR ---
pt UP 1PA WITH FWW FROM BED TO CHAIR, PER pt REQUEST. BLANKETS AND CALL LIGHT PROVIDED. NO FURTHER NEEDS, RR EVEN AND UNLABORED. BOARD UPDATED.
--- NOTE | 2020-10-25 02:44 | NUR ---
pt RESTING QUIETLY IN CHAIR, EYES CLOSED AND RR EVEN AND UNLABORED. NO DISTRESS NOTED. CALL LIGHT IN REACH.
--- NOTE | 2020-10-25 04:00 | NUR ---
CALL LIGHT ANSWERED, pt UP 1PA TO VOID WITH FWW AND BACK TO CHAIR. pt USED BSC, TOLERATED WELL, STEADY ON FEET. ASSESSMENT ALSO DONE, NO NEW CHANGES OR CONCERNS. CALL LIGHT REMAINS IN EASY REACH.
--- NOTE | 2020-10-25 06:18 | NUR ---
VS AND I&O'S COMPLETE, DR DRISCOLL MADE AWARE OF ELEVATED MANUAL BP OF 194/92. VERBAL ORDER READ BACK TO GIVE SCHEDULED 0800 COREG AT THIS TIME. NO NEW ORDERS. GOLF BALL MARKER BAILEY AWARE.
--- NOTE | 2020-10-25 06:49 | NUR ---
pt'S SON IRVIN CALLED AND ASKED FOR UPDATE. UPDATE PROVIDED, QUESTIONS ANSWERED.
--- NOTE | 2020-10-25 06:54 | NUR ---
pt HAD AN UNEVENTFUL NIGHT, SLEPT WELL FOR MOST OF THE SHIFT. A/O TO ALL BUT DATE. SBP ELEVATED THIS MORNING, SCHEDULED COREG GIVEN EARLY. 1PA WITH FWW, CALLS APPROPRIATELY. 2GM SODIUM DIET, TOLERATING WELL. NO NAUSEA OR PAIN REPORTED. ON IV ACCESS, AWARE.
--- NOTE | 2020-10-25 07:00 | NUR ---
REPORT RECEIVED FROM NIGHT RN. PT RESTING IN CHAIR WITH EYES CLOSED, BREATHING EVEN AND UNLABORED. CALL LIGHT IN REACH, WILL CONTINUE PLAN OF CARE.
--- NOTE | 2020-10-25 07:45 | NUR ---
Call light answered, pt requests warm blankets. Pt also ambulates to BSC with 1PA and FWW, steady gait with minimal assistance needed. Hot tea made for pt. Call light in reach, no further needs at this time.
--- NOTE | 2020-10-25 08:06 | NUR ---
Scheduled medications administered, assessment complete. Pt resting in chair. Able to swallow pills whole. R side weakness noted with neuro checks, pt denies n/t in BLE. Skin examined, see assessment chart. No allevyns in place at this time. Pt oriented except to date, easily reoriented. No further needs.
--- NOTE | 2020-10-25 09:45 | NUR ---
Pt requests more hot tea. Pt son and CM in room. Pt home medications in personal pill container given to son to take home. No needs.
--- NOTE | 2020-10-25 10:00 | NUR ---
In and spoke with pt and her son Meliton. Son would like pt to go to a SNF on [place] and pt is adamant she will not go. Pt does agree to get a Life Alert, but is not happy to do so. Son finally got pt to agree to an assisted living. Pt states she is not familiar with any. Names ALFS in town and son states he does lawn/sprinkler repair at most of these. [facility], [facility]. Called [facility] and they will not accept pt for short term. Left message for [facility]. Spoke with Ellie from [facility] and she will visit pt at 3 pm. Called son, Meliton, and updated Ellie will visit at 3 pm and he will be here for visit. They do not have a bed open until Sat or Sun.
--- NOTE | 2020-10-25 13:13 | NUR ---
PT ALERT, ORIENTED AND SITTING IN CHAIR. PT FEELS THAT SHE IS DOING MUCH BETTER FROM ADMISSION. SON [place]OWN AND KEEPS CLOSE WATCH ON PT WHICH SHE APPRECIATES. PT FEELS WELL CARED FOR AT [facility], GAVE BLESSING AND G.POST TO PT. WILL FOLLOW
--- NOTE | 2020-10-25 13:35 | NUR ---
VITALS AND I'S AND O'S COMPLETED. PT SITTING UP IN CHAIR. DENIES PAIN OR NEEDS. ATE LUNCH WELL. CALL LIGHT IN REACH.
--- NOTE | 2020-10-25 13:40 | NUR ---
Assessment complete. radius grinder in room to take vitals. Pt requests new warm blankets and hot tea, provided. Pt asked if she has any questions or concerns about plan of care, she states that she does not. Call light in reach.
--- NOTE | 2020-10-25 14:59 | NUR ---
Received call from Torri at . She has a respite room open and will come and speak with pt at 4 pm.
--- NOTE | 2020-10-25 15:30 | NUR ---
Scheduled medications administered. Pt transfers to BSC with 1PA and FWW, tolerates well. Repositioned in chair. Belongings retrieved from lead front desk agent by this RN. Pt states no further needs, call light in reach.
--- NOTE | 2020-10-25 17:15 | NUR ---
Scheduled meds given. Pt 1PA to BSC for void. Water refreshed. Pt having intermittent confusion related to surroundings but very easily reoriented. No further needs, call light in reach.
--- NOTE | 2020-10-25 19:19 | NUR ---
REPORT RECEIVED FROM DAY SHIFT RN. PT SITTING IN RECLINER RESTING WITH EYES CLOSED, NAD. RESPIRATIONS EVEN. WHITE BOARD UPDATED. CALL LIGHT IN REACH.
--- NOTE | 2020-10-25 19:30 | NUR ---
CALL LIGHT ANSWERED. pt ASSISTED TO RECLINE CHAIR. NO ADDITONAL NEEDS, TALKING ON CELL PHONE AT THIS TIME.
--- NOTE | 2020-10-25 21:24 | NUR ---
CALL LIGHT ANSWERED. PT UP TO BSC WITH 1PA TO VOID. GAIT WEAK. PT INCONTINENT OF URINE. CLEAN BRIEF PROVIDED. PT ABLE TO DO OWN NOEMI CARE. BACK TO RECLINER, OUMAR WELL. VS AND I&O COMPLETE. BP NOTED TO BE ELEVATED AFTER TRANSFER, SCHEDULED MEDS PROVIDED. PT DENIES PAIN OR NAUSEA. ASSESSMENT COMPLETE. PT ALERT AND ORIENTED TO ALL BUT DATE. DENIES QUESTIONS OR CONCERNS. CALL LIGHT IN REACH.
--- NOTE | 2020-10-25 22:50 | NUR ---
PT RESTING IN RECLINER WITH EYES CLOSED, NAD. CALL LIGHT IN REACH.
--- NOTE | 2020-10-26 03:55 | NUR ---
PT CALLING OUT. IN TO ASSIST TO BSC WITH FWW TO VOID. PT ABLE TO DO OWN NOEMI CARE. GAIT STEADY. BACK TO RECLINER, OUMAR WELL. OFFERED TO ASSIST PT TO BED BUT SHE DOES NOT WISH TO SLEEP IN THE BED. CHAIR ALARM IN PLACE. CALL LIGHT IN REACH.
--- NOTE | 2020-10-26 05:54 | NUR ---
PT HEARD YELLING FROM ROOM "CAN SOMEBODY HELP ME?" PT REPORTS NEEDING TO VOID. SBA TO BSC TO URINATE. PT HAD ALREADY HAD INCONTINENCE IN DEPENDS. FRESH DEPENDS APPLIED; 150ML CLEAR YELLOW URINE NOTED. PT BACK INTO CHAIR WITH CHAIR ALARM ON. CALL LIGHT WITHIN [facility].
--- NOTE | 2020-10-26 06:54 | NUR ---
VS AND I&O COMPLETE. PT WITH C/O HEADACHE. PRN ADMINISTERED FOR PAIN. WARM BLANKET PROVIDED PER REQUEST. CHAIR ALARM IN PLACE. NO FURTHER NEEDS AT THIS TIME. CALL LIGHT IN REACH.
--- NOTE | 2020-10-26 07:00 | NUR ---
Report received from Elizabeth RICHARDSON. Pt resting in chair with eyes closed and breathing even and unlabored. Call light in reach, will continue plan of care.
--- NOTE | 2020-10-26 08:00 | NUR ---
Called and spoke with Torri from [facility]. She saw Shari last night and she was interested in moving in, but wanted to speak with her son first. Meliton, pts son called, he is on his way here. I will give him Torri's number to call and confirm placement.
--- NOTE | 2020-10-26 08:06 | NUR ---
PATIENT UP IN CHAIR EATING BREAKFAST. WARM WASHCLOTH GIVEN. CALL LIGHT IN REACH. NO FURTHER NEEDS AT THIS TIME.
--- NOTE | 2020-10-26 08:41 | NUR ---
Scheduled medications administered, vitals taken and VSS. Pt reports no pain at this time, states feeling generally well. Son in room, discussing plan of care for discharge. Assessment complete. Pt has allevyn in place on L elbow, C/D/I. Hot tea provided, no other needs at this time.
--- NOTE | 2020-10-26 09:00 | NUR ---
Spoke with Meliton by phone. He will get pts scooter and lift chair and deliver to [facility]. After pts belongings are in place he [facility]
--- NOTE | 2020-10-26 11:50 | NUR ---
Rounded on patient, dressed and sitting up in chair. On room air, states no needs. Call light in reach.
--- NOTE | 2020-10-26 12:44 | NUR ---
PT APPEARS ALERT, ORIENTED AND IS PLANNING ON DC TODAY. PT SAID SHE IS WAITING ON HER SON IRVIN TO ARRIVE FROM WORK. PT IS SITTING IN CHAIR, LEGS ELEVATED AND COVERED IN BLANKETS. GAVE ENCOURAGEMENT AND BLESSING
--- NOTE | 2020-10-26 16:45 | NUR ---
Notified by son he has completed moving pts belongings. Orders are complete and he will pick pt up at the front of the hospital in 10 min. Nurse has pt ready for dc. Orders copied and placed in envelope for [facility].
--- NOTE | 2020-10-26 17:00 | NUR ---
Scheduled medications administered, vitals taken. Pt is discharged to [facility] facility via wheelchair with all belongings in hand. Discharge information given to pt verbally and written, pt expresses understanding and has no questions. Report called to facility. No new RX. Pt son picks up pt to transport to [facility].
== END 2020-10-26 17:00 | DRG 59 ==
LOC: ED 19:25 → MS 19:27
PROVIDERS: ADMIT Internal Medicine; ATTEND Internal Medicine
DX: G35 Multiple sclerosis (principal); G45.9 Transient cerebral ischemic attack, unspecified; R47.02 Dysphasia; M62.81 Muscle weakness (generalized); I10 Essential (primary) hypertension; E03.9 Hypothyroidism, unspecified; E78.5 Hyperlipidemia, unspecified; R29.6 Repeated falls; F39 Unspecified mood [affective] disorder; D72.829 Elevated white blood cell count, unspecified; Z74.01 Bed confinement status; Z88.0 Allergy status to penicillin; Z79.899 Other long term (current) drug therapy; Z79.82 Long term (current) use of aspirin; Z79.890 Hormone replacement therapy
CPT/HCPCS: 36415; 70551; 80053; 85025; 92523; 97110; 97162; 97165; 97530; 99285; J1650; J2405; J7121

== ENCOUNTER 2021-03-31 14:00 | Emergency (ER) | payer MEDICARE ==
[~2021-03-31] VITALS: Ht 160 cm; Wt 87.1 kg
[~2021-03-31 14:00] MED LIST changes: +TRIAMTERENE-HC1 EAC1 PO
--- NOTE | 2021-04-01 21:37 | EKG ---
[facility] [address] [place] [address] Signed Sinus rhythm with occasional premature ventricular complexes Inferior infarct , age undetermined Cannot rule out Anterior infarct , age undetermined ST \T\ T wave abnormality, consider lateral ischemia Abnormal ECG When compared with ECG of 21-OCT-2020 13:35, premature ventricular complexes are now present Inferior infarct is now present Confirmed by VIKTORIA MILES DO ([id number]) on 04/01/2021 9:37:23 PM Electronically Signed By: VIKTORIA MILES DO 04/01/21 2137 PATIENT NAME: TERENCE BAJWA Electrocardiogram DATE OF : 50 PHYSICIAN: VIKTORIA MILES DO REPORT #: [id number] REPORT IS CONFIDENTIAL AND NOT TO BE RELEASED WITHOUT AUTHORIZATION
== END 2021-03-31 19:35 | disposition home or self-care (01) ==
LOC: ED 14:00
DX: U07.1 COVID-19 (principal); G35 Multiple sclerosis; I10 Essential (primary) hypertension; Z88.0 Allergy status to penicillin; Z79.899 Other long term (current) drug therapy; Z79.82 Long term (current) use of aspirin
CPT/HCPCS: 80053; 83735; 84484; 85025; 93005; 93010; 99284-25; C9803; M0243; Q0244; U0003

== ENCOUNTER 2022-01-18 12:55 | Inpatient (IN) | payer MEDICARE ==
[~2022-01-18] VITALS: Ht 160 cm; Wt 73.0 kg
--- NOTE | 2022-01-18 19:51 | NUR ---
REPORT RECEIVED FROM ED RN JEVON VIA TELEPHONE. AWAITING pt's ARRIVAL [facility].
--- NOTE | 2022-01-18 20:13 | NUR ---
pt ARRIVED TO THE [facility] FLOOR FROM ED STRETCHER, pt ALREADY IN [facility] BED UPON THIS RN ENTERING ROOM. pt REPOSITIONED IN BED, WEIGHT OPTAINED. VSS, 1LNC IN PLACE. NIO ORDERS FOR O2 PLACED, pt REQUIRED O2 AFTER IV PAIN MEDICATION IN ED. BED ALARM ON AND CALL LIGHT IN REACH. PER SON IRVIN, pt HAS DEMENTIA AND HE IS THE pt's POA. pt RESTLESS IN BED AND REQUIRES FREQUENT POSITION CHANGES, HX MS. IV SITE WNL, IV FLUIDS INFUSING DIRECTED. WILL MONITOR. PRIMARY RN PENNY TO COMPLETE.
--- NOTE | 2022-01-18 21:45 | NUR ---
IN TO ASSIST PT WITH REPOSTITIONING, PT CRIES OUT 'OH HELP ME' AND TOSSING AROUND IN BED STAFF TRY TO HELP PT ADJUST IN BED, RN IN TO PROVDE PM MEDS
--- NOTE | 2022-01-18 22:00 | NUR ---
REPORT RECEIVED FROM DERMATOLOGY NURSE. PT IS YELLING AND THRASHING AROUND ON THE BED. SHE SCREAMS SHE IS HURTING. PT IS GIVEN HER BACLOFEN AND TYLENOL. SHE DOES NOT REDIRECT . STAFF IS IN ROOM TRYING TO REPOSITION PT FOR HER COMFORT WITH NO LUCK.
--- NOTE | 2022-01-18 22:30 | NUR ---
pt REMAINS AGITATED AND VERY RESTLESS IN BED, CONTINUES TO REPORTS PAIN, HX MS AND DEMENTIA. pt REPEATEDLY TURNS AND ROLLS IN BED. THERAPEUTIC COMMUNICATION GIVEN. THIS RN AND PRIMARY RN HAVE REPOSITIONED pt IN VARIOUS POSITIONS PER pt REQUEST SINCE HER ARRIVAL TO [facility], BUT pt DOES NOT GET ANY CALMER. pt ALSO YELLS OUT, "HELP ME", PRIMARY RN PENNY ON PHONE TO UPDATE MD AND ASK FOR ADDITIONAL PAIN MEDICATIONS. WILL CONTINUE TO MONITOR.
--- NOTE | 2022-01-18 22:40 | NUR ---
DR DRISCOLL IS CALLED FOR PAIN MEDICATION PT CONTINUES TO THRASH AROUND IN BED AND YELL THAT HER RIGHT LEG HURTS. DR DRISCOLL HAS ORDERED DILAUDID IV FOR PAIN.
--- NOTE | 2022-01-18 22:55 | NUR ---
PT WAS GIVEN DILAUDID 0.5 MG IVP FOR PAIN SHE RATES 9/10. SHE IS REASSURED THAT DILAUDID IS THE SAME THE PAIN MED IN THE ED THAT WAS SO EFFECTIVE. SUPERVISOR CHAR HOUSE IS REQUESTED TO SIT WITH PT TO ENSURE PT DOES NOT FALL OUT OF BED.
--- NOTE | 2022-01-18 23:01 | NUR ---
SITTING WITH PT FOR PT SAFETY, PT TOSSING AND TURNING IN BED, CALLING OUT TO STAFF
--- NOTE | 2022-01-18 23:15 | NUR ---
PT WANTS TO GET OVER TO HER SIDE, ASSISTED WITH PILLOW TO BRACE BACKSIDE, PT HAS FALLEN ASLEEP, RR NOTED 18bpm, EVEN, PT SNORING AT THIS TIME, BED ALARM IN PLACE, THIS ULTIMATE HOOPS SCOREBOARD OPERATOR EXITS THE ROOM
--- NOTE | 2022-01-18 23:44 | NUR ---
PT APPEARS TO BE ASLEEP ON HER BED. CALL LIGHT IN REACH. BED ALARM IS ON.
--- NOTE | 2022-01-19 00:15 | NUR ---
pt HEARD CALLING OUT FROM ROOM, BED ALARM REMAINS ON. pt REPEATEDLY STATES, "I WANT IRVIN...YOU'RE BEING A BRAT". ATTEMPTED TO REORIENT pt AND pt CONTINUES TO CALL TIMBER ROBBER "LIARS" AND "BRATS". pt IRRITABLE. BED ALARM REMAINS ON AND CALL LIGHT IN REACH. WILL CONTINUE TO MONITOR.
--- NOTE | 2022-01-19 00:25 | NUR ---
SON CALLED PT IS YELLING AND CRYING FOR HIM.IRVIN SAID HE WOULD COME IN FROM [facility]. IRVIN ALSO SAID SHE WAS YELLING AND OUT OF CONTROL IN THE ED WHEN HE WAS WITH HER. PT WAS TOLD REPEATEDLY THAT IRVIN WOULD BE IN TO THE HOSPITAL. PT IS NOT ABLE TO BE CONSOLED.
--- NOTE | 2022-01-19 01:45 | NUR ---
PT IS VERY AGITATED. REFUSES HER OXYGEN. YELLING AT STAFF AND SON. NOTIFIED AND HALDOL 5 MG IV X1 DOSE IS ORDERED.
--- NOTE | 2022-01-19 01:50 | NUR ---
PT WAS INCINTINENT. HER ATTENDS WERE CHANGED, SKIN WAS CLEANED AND BARRIER CREAM WAS APPPLIED.
--- NOTE | 2022-01-19 01:59 | NUR ---
PT WAS GIVEN HALDOL 5 MG FOR AGITATION . HER SON AND A STAFF MEMBER ARE AT THE BEDSIDE TO COMFORT AND KEEP PT SAFE.
--- NOTE | 2022-01-19 02:19 | NUR ---
PT HAS QUIETED AND HAS HER EYES CLOSED. IRVIN, HER SON, IS RESTING IN A CHAIR AT HER BEDSIDE.
--- NOTE | 2022-01-19 02:43 | NUR ---
PT APPEARS TO BE ASLEEP AT THIS TIME.
--- NOTE | 2022-01-19 03:18 | NUR ---
PT APPEARS TO BE SLEEPING QUIETLY. SON IS AT THE BEDSIDE IN A CHAIR.
--- NOTE | 2022-01-19 06:49 | NUR ---
NOTIFIED OF PT'S CONTINUING AGITATION AND CONFUSION. NO HEAD CT SEEN EVEN THOUGH PT HAD A FALL AT HOME. ORDER FOR HEAD CT ANDATIVAN PRIOR TO TAKEN. IRVIN NOTIFIED OF CT.
--- NOTE | 2022-01-19 07:00 | NUR ---
PT LAYING DIAGONAL IN THE BED, BED ALARM SET OFF, ASSISTED PTs SON TO REPOSITION IN BED, BED ALARM STILL ON
--- NOTE | 2022-01-19 07:44 | NUR ---
PT IS SCHEDULED FOR A HEAD CT W/O CONTRAST. SHE WAS MEDICATED WITH ATIVAN. PT DID DESAT TO 83 % ON RA. PUT A NASAL CANNULA ON AT 2L AND PT'S SATS INCREASED TO 100 %. SHE WAS OK WITH THE NC AND A BEDSIDE PULSE OX. IRVIN IS AT THE BEDSIDE.
--- NOTE | 2022-01-19 07:50 | NUR ---
Attempted to see pt, she is sleeping.
--- NOTE | 2022-01-19 07:56 | NUR ---
PT TO CT VIA BED WITH 2L O2 NC. SON AT BEDSIDE.
--- NOTE | 2022-01-19 08:50 | NUR ---
PT RESTING IN BED, APPEARS ASLEEP, AROUSABLE YET DROWSY. RESPIRATIONS EVEN AND UNLABORED, RESPIRATORY RATE 14, O2 SAT 99% ON 2LNC AND HEART RATE 60 PER PUSLE OX. BED ALARM ON. IRIVN AT BEDSIDE.
--- NOTE | 2022-01-19 08:57 | EKG ---
[facility] [address] [place] [address] Signed Normal sinus rhythm with sinus arrhythmia Possible Left atrial enlargement ST \T\ T wave abnormality, consider lateral ischemia Abnormal ECG When compared with ECG of 31-MAR-2021 14:28, premature ventricular complexes are no longer present Criteria for Inferior infarct are no longer present ST more depressed in Lateral leads T wave inversion more evident in Lateral leads Confirmed by PENNY DRISCOLL MD ([id number] on 01/19/2022 8:57:03 AM Electronically Signed By: PENNY DRISCOLL MD 01/19/22 0857 PATIENT NAME: TERENCE BAJWA Electrocardiogram DATE OF : 50 PHYSICIAN: PENNY DRISCOLL MD REPORT #: [id number] REPORT IS CONFIDENTIAL AND NOT TO BE RELEASED WITHOUT AUTHORIZATION
--- NOTE | 2022-01-19 09:31 | NUR ---
PT RESTING WITH EYES CLOSED, RESPIRATIONS EVEN AND UNLABORED, RESPIRATORY RATE 16, O2 SAT 99% ON 1LNC. AROUSABLE YET FALLS BACK TO SLEEP, DROWSY. SON ASLEEP AT BEDSIDE. CALL LIGHT IN REACH. BED ALARM ON.
--- NOTE | 2022-01-19 10:09 | NUR ---
WOKE PT UP, REQUESTED BREAKFAST, PT REPOSITIONED FOR BREAKFAST. AWARE OF SELF, PLACE AND TIME. UNAWARE OF EVENTS. SAT UP TO EAT BREAKFAST, SON AT BEDSIDE. PT DENIES FURTHER NEEDS AT THIS TIME. CALL LIGHTIN REACH. BED ALARM ON.
--- NOTE | 2022-01-19 13:01 | NUR ---
PT LAYING IN BED REPOSITIONED WITH NURSE MATHEW. CALL LIGHT WITHIN REACH NO FURTHER TASKS AT THIS TIME
--- NOTE | 2022-01-19 14:16 | NUR ---
PT CRYING IN PAIN, YELLING FOR HELP, C/O PAIN, UNABLE TO RATE, LOACTED ON RIGHT LEG. PT ABLE TO MOVE LEG, NON TENDER TO THE TOUCH OR WITH MOVEMENT. PT GIVEN PRN DILUADID FOR PAIN. FLACC SCALE 7/10
--- NOTE | 2022-01-19 15:00 | NUR ---
Pt cont. to live at home alone. She uses a wc. Son and DIL assist her. Pt has a cg, but she is having a baby in the near future. Pt plans on dc home when cleared medically.
--- NOTE | 2022-01-19 16:56 | NUR ---
PT RESTING IN BED WITH EYES CLOSED, RESPIRATIONS EVEN AND UNLABORED, RATE 16. CALL LIGHT IN REACH, BED ALARM ON.
--- NOTE | 2022-01-19 17:15 | NUR ---
PT RESTING QUIETLY IN BED WITH EYES CLOSED, RESPIRATIONS EVEN AND UNLABORED, RATE 16. CALL LIGHT IN REACH, BED ALARM ON.
--- NOTE | 2022-01-19 19:40 | NUR ---
Patient asleep in bed. On 2L O2. Bed alarm in place. Call light within reach.
--- NOTE | 2022-01-19 20:05 | NUR ---
BED ALARM SET OFF, PT PUTTING LEGS OVER THE EGDE OF THE BED, WITH RN, GET VITALS, PT WANTS TO GET UP TO THE CHAIR, PT PIVOTED TO THE CHAIR 2PA, PT NOW WORKING ON DINNER TRAY, CHAIR ALARM IS IN PLACE, NO FURTHER NEEDS, PT IN VIEW OF RN STATION
--- NOTE | 2022-01-19 20:30 | NUR ---
PT CALLED UP ASKING TO BE RECLINED, IN TO ASSIST PT, PT THEN WANTED TO GET BACK TO BED, 2PA PIVOT, ATTENDS INCONT, NEW IN PLACE, NOEMI CARE DONE, BED ALARM SET, RN IN TO PROVIDE PM MEDS, NO FURTHER NEEDS AT THIS TIME
--- NOTE | 2022-01-19 20:36 | NUR ---
ASSISTED LAUNDRY TUB MAKER WITH TRANSFERRING pt FROM CHAIR TO BED, 2PA STAND PIVOT, pt REQUIRES PROMTPING, GENERALIZED WEAKNESS NOTED. pt ALSO INCONTINENT OF URINE, NOEMI CARE DONE AND DRY ATTENDS IN PLACE. BED ALARM RESUMED AND PRIMARY RN IN ROOM WITH pt.
--- NOTE | 2022-01-19 20:56 | NUR ---
THIS DATA CONTROL CLERK SUPERVISOR AND THE RN HAVE BEEN IN AND OUT OF ROOM, PT CRIES OUT FOR HELP MOVING HER LEGS, RAISING AND LOWERING HOB, PT WANTS HER GLASSES, CANT SEE THE TV, REMINDING PT SHE NEEDS TO USE HER CALL LIGHT AND THAT STAFF WILL BE BACK TO CHECK ON HER OFTEN, PT COUNTINUES TO CALL OUT
--- NOTE | 2022-01-19 21:34 | NUR ---
pt HEARD CALLING OUT FOR HELP, THIS RN AND PRIMARY RN IN ROOM AND ASSISTED pt WITH REPOSITIONING. BED ALARM REMAINS ON AND CALL LIGHT IN REACH.
--- NOTE | 2022-01-19 23:34 | NUR ---
Patient continues to call out. Constantly desiring to change positions. Has been given haldol, ativan, and dilaudid for general discomfort. These have proven slightly effective, however, patient continues to call out. Bed alarm in place. 2L O2 in place via nasal canula.
--- NOTE | 2022-01-19 23:50 | NUR ---
PT calling out for help, this rn in room to assess, assisted pt with turning, now on her right side. bed alarm remains on and call light in reach. will contiue to monitor.
--- NOTE | 2022-01-20 00:05 | NUR ---
NEW BAG IV FLUIDS HUNG AND INFUSING DIRECTED, pt REMAINS IN BED WITH BED ALARM ON FOR SAFETY. pt CONTINUES TO CALL OUT FOR HELP, UNABLE TO SOOTH OR CONSOLE. MD AWARE AND AT RN STATION. WILL MONITOR.
--- NOTE | 2022-01-20 00:40 | NUR ---
Patient continues to call out. Given one time, Sublingual zyprexia, 5mg. Call light within reach. Bed alarm in place.
--- NOTE | 2022-01-20 01:32 | NUR ---
Patient appears to have fallen asleep. Bed alarm in place.
--- NOTE | 2022-01-20 02:14 | NUR ---
Patient continues to sleep. O2 on at 2L via nasal cannula. Bed alarm in place.
--- NOTE | 2022-01-20 03:29 | NUR ---
Patient experiencing restless sleep. Talking to people who aren't in room. Fidgeting in bed. Bed alarm in place. 2L O2 via nasal cannula in use.
--- NOTE | 2022-01-20 05:00 | NUR ---
IN TO GET VITALS WITH RN, CHECKED PT FOR INCONT, CLEANED UP, REPOSITIONED IN BED, PILLOW TO THE LEFT HIP, BED ALARM IN PLACE, NO FURTHER NEEDS AT THIS TIME
--- NOTE | 2022-01-20 05:10 | NUR ---
Patient has been awake/agitated for majority of shift. Has been uncounsable, calling out for constant repositioning and "help". Patient is oriented to self only. Claims to have pain in RLE that requires constant repositioning. Does not call appropriately. Lung sounds clear. Breaths even, unlabored. On 2L O2 via nasal canula due to slight sedation r/t anxiety meds. Heart sounds reg. Bowel sounds active. Redness noted in amarilys area and buttocks. Able to transfer w/two person assist pivot. Patient resting well after second administration of ativan. Patient had gotten around 3 hours of sleep between 0100 and 0400 following administration of zyprexia. Bed alarm remains in place.
--- NOTE | 2022-01-20 06:00 | NUR ---
IN TO PLACE PT ON BEDSIDE CPOX PER RN, NO FURTHER NEEDS AT THIS TIME, LAB IN FOR DRAW
--- NOTE | 2022-01-20 06:04 | NUR ---
Continuous pulse oximeter in place.
--- NOTE | 2022-01-20 07:30 | NUR ---
REPORT RECEIVED FROM NIGHT RN - PT RESTING IN BED WITH EYES CLOSED, RR EVEN AND UNLABORED. CALL LIGHT IN REACH, CPOX IN PLACE.
--- NOTE | 2022-01-20 08:39 | NUR ---
NURSES HELPED PATIENT INTO CHAIR AND COMPLETED VITALS. WILL APPORACH LATER. CALL LIGHT WITHIN REACH.
--- NOTE | 2022-01-20 08:41 | NUR ---
RN IN ROOM TO ASSESS PT - PT ASSISTED UP TO CHAIR WITH 2 PERSON MAX PIVOT ASSIST. PT DENIES PAIN AT THIS TIME. POSISTIONED IN CHAIR WITH PILLOWS. PT ALERT AND ORIENTED TO ALL BUT EVENT LEADING TO HOSPITALIZATION, ALTHOUGH PT KEEPS EYES CLOSED MOST OF THE TIME SHE IS FOLLOWING DIRECTIONS WELL. PT ABLE TO HOLD CONVERSATION AND LAUGH AT JOKE. SON BY EARLIER TO VISIT GIOVANNIChase. PT FED BREAKFAST, ATE 100%. SWOLLOWED PILLS WITHOUT DIFFICULTY. IV SITE TOLERATING IVF AND ABX WITHOUT DIFFICULTY. CALL LIGHT IN REACH, CURTAIN OPEN TO NURSES STATION.
--- NOTE | 2022-01-20 08:57 | NUR ---
THIS ELIGIBILITY SERVICES REPRESENTATIVE AND CHARGE NURSE JOSHUA HELPED PUT PATIENT BACK TO BED FOR A REST. NO OTHER NEEDS AT THIS TIME. CALL LIGHT WITHIN REACH.
--- NOTE | 2022-01-20 08:57 | NUR ---
pt back to bed from chair - prn ativan administered for restlessness, warm blanket provided with pillow repositioning. pt now asleep with cpox in place, bed alarm on.
--- NOTE | 2022-01-20 10:41 | NUR ---
RN ROUNDING ON PT - PT ASLEEP IN BED ON BACK, CPOX IN PLACE - SPO2 STABLE ON ROOM AIR.
--- NOTE | 2022-01-20 11:34 | NUR ---
RN ROUNDING ON PT - ASLEEP IN BED, RR EVEN AND UNLABORED. CPOX IN PLACE, SPO2 STABLE ON ROOM AIR.
--- NOTE | 2022-01-20 12:30 | NUR ---
PT UP TO CHAIR USING JENNIFER LIFT. PT TOO SLEEPY TO EAT LUNCH AT THIS TIME. WARM BLANKET PROVIDED, CURTAIN OPEN TO VISUALIZE FROM NURSES STATION.
--- NOTE | 2022-01-20 14:00 | NUR ---
PT IN BED, LOTS OF COMPLAINTS OF BEING UNCOMFORTABLE. THIS CLAIMS CONFIGURATION ANALYST TRIED TO POSITION MULTIPLE TIMES AND ENDED UP BEING 50% SUCCESSFUL. PURE WICK PUT IN AT 1400. VITALS AND I/O'S COMPLETED. NURSE NOTIFIED. NO OTHER NEEDS AT THIS TIME, CALL LIGHT IS WITHIN REACH.
--- NOTE | 2022-01-20 14:51 | NUR ---
Pt was asking for help. When asked what was bothering her, she was not able to tell. Marina care performed. Pt was repositioned. Ativan given. L elbow abrasion covered with Allevyn, heel/elbow protector applied.
--- NOTE | 2022-01-20 14:51 | NUR ---
SPOKE WITH SUMMER WITH [facility]. PATIENT SON IRVIN HAS BEEN IN CONTACT WITH [facility] ABOUT THE PATIENT MOVING IN FOR MORE ASSISTANCE. PER SUMMER THEY WILL BE ABLE TO ACCEPT THE PATIENT ON SUNDAY OR SUNDAY. SUMMER TO CALL BACK ON WITH PLACEMENT UPDATE.
--- NOTE | 2022-01-20 17:04 | NUR ---
CBC and BMP ordered for tomorrow morning.
--- NOTE | 2022-01-20 17:57 | NUR ---
PATIENT IN BED, VITALS AND I/O'S COMPLETED. PUREWICK IN PLACE. NO OTHER COMPLAINTS AT THIS TIME. CALL LIGHT WITHIN REACH.
--- NOTE | 2022-01-20 20:20 | NUR ---
PT CALLING FOR HELP, WANTS TO GET UP TO BEDROOM, REMINDED PT SHE IN THE HOSPITAL, FALLS ASLEEP, CPOX WAS PULLED TO THE FLOOR, UNTANGLED CORDS, CPOZ BACK IN PLACE, NO FURTHER NEEDS AT THIS TIME
--- NOTE | 2022-01-20 20:30 | NUR ---
REPORT GIVEN TO SON
--- NOTE | 2022-01-20 20:45 | NUR ---
IN TO CHECK ON PT, PT USING CALL LIGHT, PT REDIRECTABLE, VS DONE, PUREWICK WNL, BED ALARM IN PLACE
--- NOTE | 2022-01-20 22:48 | NUR ---
pt hob elevated to her comofrt. on room air. IVF infusing LA, allevyn to elbows. purewick in place attends in place. edema to LE elevated, heel protectors in place. coop. took meds, well, all procedures explained prior to repositioned in bed, cooperative, clear normal speech to whats was going on at that time. cooperative. back to bed, asked to have light turned off. went back to bed, eyes closed, no resp distress
--- NOTE | 2022-01-20 23:10 | NUR ---
pt wanting to get oob/up to the chair, upon sitting at eob, pt is too tired & uncordenated to stand at this time with 2pa, pt repositioned in bed and falls asleep quickly, getting up to the chair was disreguarded, bed alarm set
--- NOTE | 2022-01-21 00:28 | NUR ---
PT ON ROOM AIR, NO RESP DISTRESS, HOB ELEVATED, CALL LIGHT AND FLUIDS AT HANDS REACH, BED ALARM ON. IVF INFUSING PUREWICK IN PLACE
--- NOTE | 2022-01-21 01:49 | NUR ---
had been sleeping well, woke up screaming, repositioned, coop, "I cant find my phone" stated, reassured, hosp phone placed in her hands, "No Justin looking for a modern one not a dinosaur", calmed down after some cuing. went back to sleep. IVF infusing w/o problems. legs elevated, on room air, call light and fluidsa t bedside
--- NOTE | 2022-01-21 01:54 | NUR ---
IN TO HELP PT REPOSITION SHOULDERS/UPPER BACK
--- NOTE | 2022-01-21 03:41 | NUR ---
PT RESTING, ON ROOM AIR, NO DISTRESS, IVF INFUSING W/O PROBLEMS. LEGS ELEVATED, PUREWICK IN PLACE, DRAINING DARK YELLOW URINE.
--- NOTE | 2022-01-21 03:56 | NUR ---
PT C/O STIFF R LEG, SLOW MOTION EXERCISES DONE, AND SKIN RUBBED ON HER REQUESTS, STATED RELIEF. LEG ELEVATED IN PILLOWS
--- NOTE | 2022-01-21 03:56 | NUR ---
IN TO CHECK ON PT, CALLING OUT FOR HELP, HER LEG IS FALLING ALSEEP, OFFER TO BEND AT KNEE, PT DEMANING TO GET UP, RN IN TO HELP PT, LEG EXERSICE HELPED, PT ASSISTED TO TURN MORE ON SIDE, PT STILL HAVING LEG PAIN, RN CHECKING ON PT AGAIN
--- NOTE | 2022-01-21 04:07 | NUR ---
c/o 01/01 r leg pain and bilat leg pain, medicated with dilaudid 0.5mg iv, repositioned multiple time with some comofrt each time. cooperative, lets her needs know
--- NOTE | 2022-01-21 04:13 | NUR ---
PT NOW LAYING ON BACK, KNEE BENT WITH PILLOW SUPPORT
--- NOTE | 2022-01-21 04:37 | NUR ---
PT MORE RESTLESS, MILD PAIN RELIEF R LEG STATED FROM EARLIER PAIN MED. ZYPREXA 5MG PO GIVEN PER INCREASED RESTLESSNES. REPOSITIONED IN BED, BACK AND LEGS RUBBED AT HER REQUESTS.
--- NOTE | 2022-01-21 04:56 | NUR ---
PT CALLING OUT, WANTS KNEE BENT, HURTING AGAIN
--- NOTE | 2022-01-21 05:00 | NUR ---
PT USES CALL LIGHT THIS TIME, ASSISTED TO ROLL TO OTHER SIDE, KNEE BENT FOR PT COMFORT
--- NOTE | 2022-01-21 05:16 | NUR ---
PT ON ROOM AIR, LUNGS DIM AT BASES. HAS SLEPT OFF AND ON, TIL ABOUT 0430. STARTED GETTING INCREAED AGITATED AND RESTLESS, MEDICATED WITH DILAUDID PER R LEG PAIN. R LEG HAS BEEN RUBBED AND REPOSITIONED MULTIPLE TIMES, LIGHT FOOT DROP PRESENT R LEG. STIFF, TRIED TO GET TO EDGE OF BED EARLIER ON SHIFT. UNABLE TO BEAR GAIT WOBBLKY UNSTEADY, UNABLE TO STAND UP. BACK TO BED, HAS BEEN REPOSITIONED MULTIPLE TIMES IN BED. WAS MEDICATED WITH ZYPREXA PER INCREASED AGITATION, NOT EFFECTIVE YET. HAS TOLERATED LIQUIDS WELL. IVF INFUSING W/O PRBLEMS. BED ALARM ON.
--- NOTE | 2022-01-21 06:07 | NUR ---
IN AND OUT OF PT ROOM MULTIPLE TIME, PT NEEDING HELP WITH LEG, TV HELP, ETC.. PT AT TIMES USING CALL LIGHT, TIMES CALLING OUT
--- NOTE | 2022-01-21 07:20 | NUR ---
Bedside report received from JERONIMO RN. Pt is sleeping in bed, on her L side. IVF at 85 ml/hr. Pt's son visited briefly. Pure wick in place. .
--- NOTE | 2022-01-21 10:30 | NUR ---
Pt was grossly incontinent. Marina care provided. All linen and gown changed. New purewick applied. Pt was repositioned and feet elevated off the bed. Pt is now sleeping.
--- NOTE | 2022-01-21 12:45 | NUR ---
Pt ate 25% of lunch. She is now resting in bed. Pure wick in place. RA. No concerns/requests at this time. Pt appears to be in no apparent distress. Bed alarm on.
--- NOTE | 2022-01-21 15:36 | NUR ---
Pt is sleeping in bed. RA. Pt repositioned for pressure relief. Pure wick in place.
--- NOTE | 2022-01-21 16:09 | NUR ---
new SimulScribe in place @1600. call light within reach.
--- NOTE | 2022-01-21 21:20 | NUR ---
pt awake, on room air, lungs clear dim at bases, alert and oriented, stating needs very clear, aware of all her meds and why she takes them. respositioned to her R side on her request. legs elevated with pillow at her requests. IVF infusing LAC. Bed alarm on cont cpoc on. denies CP or sob at thist guevara, follows instructions and coop. All procedures explained to pt.
--- NOTE | 2022-01-21 22:43 | NUR ---
PT USED CALL LIGHT, C/O PAINFUL R LEG, REPOSITIONED IN BED, INCONTIENT OF URINE, SKIN CARE, CLEAN ATTENDS AND PURE WICK CHANGED AT THIS TIME. LEG RUBBED DOWN AND REPOSITIONED MULTIPLE TIMES TO HER COMFORT. mEDICATED WITH TYLENOL 650MG PO AND MUSCLE RELAXANT, COOP. R ARM CONTRACTURE HANDS PRESENT. IVF INFUSING LAC ONROOM AIR
--- NOTE | 2022-01-21 23:54 | NUR ---
EYES CLOSED, NO DISTRESS, ON ROOM AIR. IVF INFUSING W/O PROBLEMS, CALL LIGHT AND FLUIDS AT BEDSIDE
--- NOTE | 2022-01-22 01:45 | NUR ---
I need to go to the br stated. bed jeffrey given, no bm, no results. Was incontinent of urine, purewik in place. skin care. coop. no c/o pain after R leg was repositioned. cooperative
--- NOTE | 2022-01-22 03:38 | NUR ---
Resting, calm quiet, on room air, no disatress. IVF infusing w/o problmes, bruising L back and arm no changes, allevyn dressing intact. R leg elevated. Call light at hands reach.
--- NOTE | 2022-01-22 05:26 | NUR ---
PT USED CALL LIGTH C/O R LEG PAIN, AREA MASSAGED ELEVATED AND REPOSITIONED IN PILLOWS. STIFF EXTREMITY. MEDICATED WITH TYLENOL 650MG PO .
--- NOTE | 2022-01-22 05:27 | NUR ---
PT ON ROOM AIR, HAS SLEPT THIS SHIFT, MORE ALERT AND ORIENTED. COOPERATIVE, C/O R LEG DISCOMFORT. HAS BEEN MEDICATED WITH TYLENOL X2 AND BACLOFENX1 GOOD PAIN RELIEF. HAS USED CALL LIGHT. TOLERATING SIPS OF FLUIDS. CLEAR LUNGS. NO C/O CP OR SOB. BRUISED TERI L SIDED HEALING, EDEMAT O R HAND AND CONTRACTURE W/O CHAGES, GOOD CMS, INCONTINENT OF URINE, ATTENDS CHANGED, HAS PURE WICK IN PLACE, CALL LIGHT AND FLUIDSA T BEDSIDE, BED ALARM ON
--- NOTE | 2022-01-22 06:55 | NUR ---
BEDSIDE HANDOFF REPORT RECEIVED FROM SUPERVISOR PROCESS TESTING RN. PT SLEEPING, LEFT UNDSITURBED.
--- NOTE | 2022-01-22 08:37 | NUR ---
PT IN BED WITH BREAKFAST WILL APPROACH AFTER FOR ADLS.
--- NOTE | 2022-01-22 09:10 | NUR ---
PT RESTING IN BED. PT DENIES PAIN AT THIS TIME, PT ON ROOM AIR, LUNG SOUNDS CLEAR. PT DENEIS NAUSEA, TOLERATING DIET, BOWEL TONES ACTIVE, HAD LARGE BM THIS, MIRALAX STARTED. PT WITH HX MS, RIGHT SIDED WEAKNESS AT BASELINE, WITHOUT EDEMA. HEEL PROTECTORS IN PLACE, RIGHT LEG ELEVATED. DISCUSSED PLAN OF CARE, PT MORE ORIENTED BUT STILL UNSURE OF EVENTS LEADING TO ADMISSION. MORNING MEDICATIONS ADMINISTERED, IV ABX INFUSING. PT DENIES OTHER NEEDS AT THIS TIME.
--- NOTE | 2022-01-22 09:31 | NUR ---
PT IN BED, NURSES DID ADLS AND NOEMI CARE. VITALS AND I/O'S COMPLETED. CALL LIGHT WITHIN REACH.
--- NOTE | 2022-01-22 11:02 | NUR ---
PT MOVED INTO CHAIR, NO OTHER NEEDS AT THIS TIME. CALL LIGHT WITHIN REACH.
--- NOTE | 2022-01-22 11:15 | NUR ---
PT 2PA TO CHAIR. WITH TECHNOLOGY CONSULTANT. IV TO LEFT AC LEAKING, NEW IV STARTED TO LEFT WRIST. PT DENIES OTHER NEEDS AT THIS TIME.
--- NOTE | 2022-01-22 12:45 | NUR ---
PT SON IS HERE, REQUESTED UPDATE. SON IS GOING TO DISCUSSS WITH PT GOING TO A NURSING FACILITY AFTER DISCAHRGE HE DOES NOT FEEL IT IS SAFE FOR HER TO RETURN HOME ALONE. HE STATES [facility] IS GOING TO COME FOR A MEETING TOMORROW AT 1500.
--- NOTE | 2022-01-22 15:30 | NUR ---
PT RESTING IN BED. AFTERNOON ASSESSMENT COMPLETED, NO ACUTE CHANGES. PT DENIES NEEDS AT THIS TIME.
--- NOTE | 2022-01-22 18:09 | NUR ---
PT ALERT AND ORIENTED. PT ON ROOM AIR, LUNG SOUNDS CLEAR. NEW IV STARTED TO LEFT WRIST, INFUSING D5 1/2 NS WITH 20MEQ K AT 75ML/HR. PT SAT IN CHAIR THIS MORNING AND HAD SHOWER. PT SON CAME TODAY AND DISCUSSED DISCHARGE PLAN WITH PT, PLAN FOR [facility] TO COME TOMORROW AT 1500. PT INCONTINENT OF URINE, PUREWICK IN PLACE. PT HAD LARGE BM THIS AM, BOWEL PROTOCOL STARTED TODAY.
--- NOTE | 2022-01-22 18:15 | NUR ---
PATIENT IN BED, VITALS AND I/0'S COMPLETED. NO OTHER NEEDS AT THIS TIME, CALL LIGHT WITHIN REACH.
--- NOTE | 2022-01-22 20:27 | NUR ---
pt more alert, follows instructions very clear on letting her needs know. on room air, clear lungs, no c/o cp or sob. much improved movement r hand. cpox at bedside. bruisign r fingers, l shoulder and arm healing. ivf infusng lhand, patent. repositioned and turned in bed. purewik in place, edema to le, elevated w pillows, stiffnes r leg. no c/o r leg pain at thist guevara, tolerating liquids well. call light and fluid at bedside
--- NOTE | 2022-01-22 22:36 | NUR ---
USED CALL LIGHT, ROOM TEMP HAD BEEN INCREAED TO 75 PT WAS COLD AND HAD HAD REQUESTED MUCLTIPLE WARM BLANKETS. STATED ROOM IS TOO COLD", ROOM TEMP DROPPED TO 72 HER REQUETS. NO OTHER REQUESTS
--- NOTE | 2022-01-23 | NUR ---
PATIENT CALLED. CHANGED PUREWICK. CHANGED ATTENDS. PATIENT REPOSITIONED/BOOSTED UP. WARM BLANKET PROVIDED. CaLL LIGHT WITHIN REACH. NO FURTHER NEEDS AT THIS TIME.
--- NOTE | 2022-01-23 01:20 | NUR ---
PATIENT CALLED STATED "MY LEGS I CANT DO ANYTHING TO MOVE. I NEED TO SIT AT THE EDGE OF THE BED". PATIENT IS BACK LYING IN BED ON HER RIGHT SIDE. PRIMARY RN WAS WITH PATIENT.
--- NOTE | 2022-01-23 02:00 | NUR ---
patient called. repositioned pipo on her back this time. patient stated can't get to sleep". call light within reach.
--- NOTE | 2022-01-23 03:12 | NUR ---
Pt repositioned in bed. c/o back and R leg pain. medicated with Zanaflex. warm blanket given on requests. purewik in place, patent
--- NOTE | 2022-01-23 03:35 | NUR ---
Pt used call light, hob elevated, "That machine-pointing to the IV pump- is talking to me". reassured, pump moved slightly away from hob. pt has call light at hands reach, bed alarm on
--- NOTE | 2022-01-23 04:54 | NUR ---
Pt used call light, c/o needing to be repositioning and of R hip, legs and back pain, medicated with Tylenol 650mg po. repositioned in bed. fresh fluids given. cooperative, pt instructed to use bed controls and she did try, cont to reinforce teaching, Bed alarmon
--- NOTE | 2022-01-23 04:55 | NUR ---
Pt on room air, bruising over R hand, L shoulder,back and arm healing. allevyn to L elbow in place. Edema to LE and begiing of feet contractures noted. elevated with pillows, heel protectors in place off and on. Pt has been more anxious this shift c/o R leg and back pain was medicated with a muscle relaxant and tylenol with fair pain control, tolerating liquids well. turned and repositioned multiple times to her comofrt. warm blankets gien on requests. incontinent of urine. purewik in place. more alert and oriented to self, place and situation, able to let her needs know. clear speech and appropriate
--- NOTE | 2022-01-23 06:52 | NUR ---
pt c/o R leg and back hurting. repositioned multiple times in the last 20 minutes while nurse was in room with pt. not comfortable as her words. repositioned in bed, fixated in gettin gup to bed. 2 person heavy assist pivoting to chair. pt unable to use R leg when pivoting. back to chair, not very receptive to teachaing, fall precautions give, Pt encouraged to do more on her own. hands on demonstrated ursing control, gives up easily and the more she fixated on getting up to chair for comfort. pillows placed on chair for comofrt due to pt increaed c/o hip and back and R leg pain. pillows repositioned while in the bed to comofrt as she was not comfortable. finaly afer several minutes rearranging pillows pt stated she was comofrtable and thats where she wanted the chair position to be in. legs elevated. call light and fluids at bedside, purewick in place. chair alarm on, again fall precautions discussed with pt. "I knowm, this is where I want to be, I been told Justin very stubborn,"
--- NOTE | 2022-01-23 07:45 | NUR ---
REPORT RECEIVED FROM DEBRA SCHMIDT. PT SITTING UP IN CHAIR FOR COMFORT. CALL LIGHT IN REACH.
--- NOTE | 2022-01-23 08:58 | NUR ---
ADMINISTERED MORNING MEDS. BP WAS HIGH BUT GIVEN 3 CARDIAC MEDS. WILL RECHECK IN AN HOUR. EATING BREAKFAST ON OWN. SON IN ROOM VISITING. LUNGS CLEAR.
--- NOTE | 2022-01-23 09:49 | NUR ---
SWITCHED BACK TO IVF FROM [facility]. PT BACK IN BED WITH CALL LIGHT IN REACH. DENIES CONCERNS. TALKING ABOUT HER GRANDKIDS AND SON.
--- NOTE | 2022-01-23 10:22 | NUR ---
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
--- NOTE | 2022-01-23 16:05 | NUR ---
CHARLEE AND TRENA FROM [facility] HERE TO MEET WITH THE PATIENT AND HER FAMILY. PATIENT HAS BEEN ACCEPTED BY [facility] AT THIS TIME. PATIENT TO DISCHARGE 01/24/22 BY POV WITH HER SON IRVIN AT NOON. SHANNAN RICHARDSON AND DR. MARSHNOTIFIED OF DISCHARGE PLAN
--- NOTE | 2022-01-23 16:16 | NUR ---
report from Amalia Kwok rn - assuming care. pt just turned and up to chair with healthcare management assist. call light in reach.
--- NOTE | 2022-01-23 17:11 | NUR ---
pt in on phone - denies needs, alert and appropriate - call light in reach.
--- NOTE | 2022-01-23 17:32 | NUR ---
PT FAMILY STEPPED OUT OF ROOM AND STATED THAT THEIR MOM NEEDED TO BE CHANGED. THIS CNA2 W/CNA2 JIM WENT INTO PT ROOM AND PERFORMED A FULL BED CHANGE, BREIF CHANGE, NEW GOWN, NOEMI CARE/SKIN CARE. PT THEN STATED THAT SHE WOULD LIKE TO GET UP INTO THE CHAIR FOR A LITTLE WHILE TO RELIEVE HER BACK. IT TOOK BOTH ROUSTABOUT SUPERVISOR'S TO TRANSFER PT TO CHAIR W/PIVOT. PT STATED SHE WOULD LIKE TO SIT UP UNTIL DINNER THEN GO BACK TO BED. WHILE SITTING IN HER CHAIR SHE HAD "BROKE HER GLASSES" ON THE SIDE. SHE HAD ME TAPE THEM UP UNTIL SHE COULD GET A HOLD OF HER SON TO BRING HER ANOTHER PAIR. PT IS RECLINED IN CHAIR W/TABLE & CALL LIGHT IN REACH. NO OTHER REQUESTS.
--- NOTE | 2022-01-23 19:51 | NUR ---
REPORT RECIEVED AT BEDSIDE, PT ALERT AND ADDED TO THE CONVERSATION. STATES NO NEEDS AT THIS TIME. IV INFUSING IN LEFT HAND W/O INFILTRATE OR REDDNESS. DRESSING TO LEFT ELBOW INTACT.
--- NOTE | 2022-01-23 22:28 | NUR ---
PT CALL LIGHT ANSWERED. PT NEEDED TO SIT UP. PT SAT UP WITH 2 OUTREACH TEAM MEMBER'S AND CHARGE NURSE BLADIMIR. PT DEPEND CHANGED PT WAS INCONTINENT. PT ADJUSTED ON BACK LAYING IN BED. VITALS TAKEN. CALL LIGHT WITHIN REACH. NO FURTHER NEEDS AT THIS TIME
--- NOTE | 2022-01-23 22:32 | NUR ---
PT CALL LIGHT ANSWERED. PT CRAMPING AND REQ TO BE REPOSITIONED. PT REPOSITONED TO L. SIDE. CALL LIGHT WITHING REACH. NO FURTHER NEEDS AT THIS TIME.
--- NOTE | 2022-01-24 01:48 | NUR ---
PT RESTING WITH EYES CLOSED, NAD
--- NOTE | 2022-01-24 05:48 | NUR ---
PT HAS LEG PAIN LAST NIGHT AND RESTLESSNESS. TYLENOL AND TIZANIDINE RESOLVED THE PAIN AND RESTLESSNESS. PT IS INCONTINENT OF URINE BUT IS AWARE WHEN SHE NEED BRIEF CHANGE AND CALLS APPROPRIATELY.
--- NOTE | 2022-01-24 07:20 | NUR ---
Report received from Liz RICHARDSON. Pt resting in bed with no needs identified at this time. Call light in reach, will continue plan of care.
--- NOTE | 2022-01-24 09:36 | NUR ---
Scheduled medications administered and assessment complete. Pt sitting up to chair after breakfast. IV ABX infusing. VSS. Pt requests to move back to bed, 2PA pivot assist. Discussed POC, pt agreeable.
--- NOTE | 2022-01-24 10:42 | NUR ---
Pt resting in bed watching tv. IVF infusing. No needs identified at this time.
[2022-01-24] MEDS ORDERED: HYDRALAZINE HCL50 MG PO (11:52)
--- NOTE | 2022-01-24 12:24 | NUR ---
Discharge teaching provided to patient and her Son Meliton who verbalize understanding and have no questions. IV removed WNL. VSS, A+O, pt on RA. All personal belongings returned. Pt dressed and provided with WC ride to son's car.
== END 2022-01-24 12:18 | disposition home or self-care (01) | DRG 690 ==
LOC: ED 12:55 → MS 19:42
PROVIDERS: ADMIT Internal Medicine; ATTEND Internal Medicine
DX: N10 Acute pyelonephritis (principal); I10 Essential (primary) hypertension; E03.9 Hypothyroidism, unspecified; Z20.822 Contact with and (suspected) exposure to COVID-19; G35 Multiple sclerosis; F39 Unspecified mood [affective] disorder; F03.90 Unspecified dementia, unspecified severity, without behavioral disturbance, psychotic disturbance, mood disturbance, and anxiety; N80.9 Endometriosis, unspecified; Z79.890 Hormone replacement therapy; Z90.710 Acquired absence of both cervix and uterus; Z88.0 Allergy status to penicillin; Z79.82 Long term (current) use of aspirin; Z79.899 Other long term (current) drug therapy; Z98.890 Other specified postprocedural states
CPT/HCPCS: 36415; 51701; 70450; 74177; 80048; 80053; 81001; 83735; 84484; 85025; 85060; 87088; 87502; 93005; 93010; 94760; 94762; 97110; 97161; 97166; 97535; 99285-25; A9270; J0696; J1170; J1630; J1650; J1885; J2060; J2405; J3480; Q9967; U0003